=== PATIENT | male | born 1945 | race Caucasian/White ===

== ENCOUNTER 2019-09-30 12:48 | Inpatient (IN) | payer OTHER, SELFPAY ==
[2019-09-30] VITALS (11 sets, daily range): BP systolic 121–171; BP diastolic 66–92; PULSE 69–83; RESP 16–69; TEMP 36.1–36.7; O2SAT 96–99; BMI 33.4
[2019-09-30 14:52] LABS: Add Manual Diff / Slide Review NO; Basophils Absolute Auto 100 /uL (0-100); Basophils Percent Auto 1.1 % (0-2); Eosinophils Absolute Auto 100 /uL (0-450); Eosinophils Percent Auto 1.6 % (2-4); Hematocrit 35.3 % (41-53); Hemoglobin 11.9 g/dL (13.5-17.5); Lymphocytes Absolute Auto 1000 /uL (1100-4500); Lymphocytes Percent Auto 13.2 % (25-40); Mean Corpuscular HGB Conc 33.8 % (30-36); Mean Corpuscular Hemoglobin 27.7 PG (26-34); Mean Corpuscular Volume 81.7 fL (80-100); Monocytes Absolute Auto 800 /uL (0-900); Monocytes Percent Auto 10.3 % (3-14); Neutrophils Absolute Auto 5800 /uL (1500-7000); Neutrophils Percent Auto 73.8 % (50-75); Platelet Count 237 X10^3/uL (150-400); Red Blood Cell Count 4.31 X10^6/uL (4.5-5.9); Red Cell Distribution Width 14.1 % (11.6-14.8); White Blood Cell Count 7.9 X10^3/uL (4.5-11.0)
[2019-09-30 15:02] LABS: Alanine Aminotransferase 22 IU/L (<50); Albumin 4.1 g/dL (3.5-5.0); Albumin Globulin Ratio 1.2 (1.0-2.8); Alkaline Phosphatase 105 U/L (38-126); Aspartate Aminotransferase 21 IU/L (17-59); BUN Creatinine Ratio 23.8 (6-22); Bilirubin Total 0.8 mg/dL (0.2-1.3); Blood Urea Nitrogen 31 mg/dL (9-20); Calcium 9.7 mg/dL (8.4-10.2); Carbon Dioxide 24 mmol/L (22-32); Chloride 102 mmol/L (98-107); Estimated Glomerular Filt Rate 54.1 mL/min (>60); Globulin 3.5 g/dL (1.7-4.1); Glucose 302 mg/dL (80-110); HEMOLYSIS 22 (0-50); Lactate (Lactic Acid) 2.3 mmol/L (0.7-2.1); Potassium 5.3 mmol/L (3.4-5.1); Sodium 135 mmol/L (137-145); Total Protein 7.6 g/dL (6.3-8.2)
--- NOTE | 2019-09-30 15:44 | DI.CT.S_ITS ---
PROCEDURE: CT ABDOMEN PELVIS W CON INDICATIONS: LLQ pain TECHNIQUE: After the administration of intravenous contrast, 5 mm thick sections acquired from the diaphragm to the symphysis. 5 mm coronal and sagittal reformats were acquired. For radiation dose reduction, the following was used: automated exposure control, adjustment of mA and/or kV according to patient size. COMPARISON: None. FINDINGS: Image quality: Excellent. ABDOMEN: Lung bases: Lung bases are clear. Heart size is normal. Solid organs: Liver is normal in size and enhancement. Gallbladder is unremarkable. Biliary system is non dilated. Pancreas enhances normally. Spleen is normal in size and enhancement. No adrenal nodules. Kidneys demonstrate normal size and enhancement, without hydronephrosis. A subcentimeter cortical low density lesion is present within the midpole the right kidney which likely represents a renal cyst but is incompletely characterized. Peritoneum and bowel: Bowel loops demonstrate normal wall thickness and caliber. The appendix is thin walled and gas filled. There are scattered sigmoid diverticula. No evidence for diverticulitis. No free fluid or air. Nodes and vessels: No retroperitoneal or mesenteric adenopathy by size criteria. Aorta and inferior vena cava are normal in size. There are scattered atheromatous calcifications throughout the aorta and iliac arteries bilaterally. Miscellaneous: No ventral hernias. PELVIS: Genitourinary: The bladder is partially fluid-filled and a Whitney catheter is present. Focal wall thickening is present at the dome of the bladder in the region of the tip of the Whitney catheter (series 5, image 42). Non-dependent gas in the bladder is likely secondary to catheterization. There is a questionable soft tissue mass within the posterior aspect of the bladder and which measures 3.4 x 2.9 x 2.6 cm (series 6/image 6 and series 5/image 42). Streak artifact from the bilateral hip arthroplasties limits evaluation. Multiple punctate calculi or layered within the posterior bladder suggesting previously passed ureteral calculi. The prostate is enlarged measuring 8.1 cm in diameter where visualized. Miscellaneous: No inguinal hernias or adenopathy. Bones: No suspicious bony lesions. No vertebral body compression fractures. 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 IMPRESSION: 1. Normal appendix. Diverticulosis. No acute diverticulitis. 2. Focal superior bladder wall thickening in the region of the tip of the Whitney catheter. Differential considerations include inflammatory changes from the adjacent catheter, cystitis, or neoplasm. Consider repositioning of the Whitney catheter. It is unclear whether this may be the etiology of the patient's pain. 3. Questionable posterior bladder mass versus lobulated hypertrophy of the prostate. Direct visualization could be used to further characterize this finding and exclude neoplasm. 4. Punctate calculi within the bladder suggesting previously passed renal calculi. Dictated by: Christina Wilburn M.D. on 09/30/2019 at 15:32 Approved by: Christina Wilburn M.D. on 09/30/2019 at 15:43
--- NOTE | 2019-09-30 15:44 | PC.NURSE ---
pt reports, urinary retention, penile infection, here today due to left lower inguinal area pain, denies fever, temp 100.1 at home, takes tylenol denies nausea or vomiting or diarrhea. arrived with urinary jackson leg bag, drained 500 ml clear yellow urine.
--- NOTE | 2019-09-30 15:46 | ED.MALEGU ---
HPI - Male Genitourinary <SHANI Dukes-BC - Last Filed: 10/03/19 11:28> General Chief complaint: Urogenital-Male Stated complaint: Pain In Groin, Has A Cath Time Seen by Provider: 09/30/19 13:36 Source: patient Mode of arrival: Ambulatory Limitations: no limitations History of Present Illness HPI Narrative: The patient is a 74-year-old male nonsmoker with history of urinary retention enlarged prostate with indwelling Whitney who presents with a chief complaint of left groin pain radiating to his left lower back. He states he has had multiple infections since having the Whitney catheter indwelling. This started in June. He stated that he was seen at an outside facility 5 days ago for the same problem, was started on antibiotics for a ?infection. But not in the urine he was started on clindamycin. He presents because of continued left lower quadrant pain. He does have a history of diabetes. He denies any fevers nausea vomiting or diarrhea. He also has a history of hypertension, high cholesterol. He states that the pain is in his left lower quadrant. Related Data Home Medications Medication Instructions Recorded Confirmed Humalog KwikPen Insulin See Rx Instructions .ROUTE .COMPLEX 09/30/19 09/30/19 Humulin N NPH U-100 Insulin See Rx Instructions .ROUTE .COMPLEX 09/30/19 09/30/19 amlodipine 5 mg PO DAILY 09/30/19 09/30/19 atorvastatin 80 mg PO DAILY 09/30/19 09/30/19 finasteride 5 mg PO DAILY 09/30/19 09/30/19 furosemide 40 mg PO DAILY PRN 09/30/19 09/30/19 hydrocodone-acetaminophen 1 - 2 tab PO Q4H PRN 09/30/19 09/30/19 lisinopril 10 mg PO DAILY 09/30/19 09/30/19 metformin 1,000 mg PO BID 09/30/19 09/30/19 potassium chloride 10 mg PO DAILY 09/30/19 09/30/19 tamsulosin 0.4 mg PO DAILY 09/30/19 09/30/19 Previous Rx's Medication Instructions Recorded levofloxacin 500 mg PO DAILY #10 tab 10/03/19 Allergies Allergy/AdvReac Type Severity Reaction Status Date / Time latex Allergy Verified 09/30/19 13:03 Review of Systems <ALEA Dukes - Last Filed: 10/03/19 11:28> Review of Systems Narrative: GENERAL: Denies chills, fatigue, malaise, fever, sweats. HEENT: Denies sinus pain, ear pain, sore throat, difficulty swallowing, dizziness. RESPIRATORY: Denies dyspnea, cough, wheezing, hemoptysis, sputum. CARDIOVASCULAR: Denies chest pain, palpitations, orthopnea, edema, GASTROINTESTINAL: See HPI : See HPI MUSCULOSKELETAL: denies weakness, joint pain, or bony pain SKIN: Denies rash, skin lesions, or other NEUROLOGIC: Denies weakness, headache, numbness, change in speech, confusion, seizures, incoordination. PSYCHIATRIC: No concerning psychosocial issues. 12 point review of systems is negative except for those stated above Patient History <ALEA Dukes - Last Filed: 10/03/19 11:28> Medical History (Updated 10/01/19 @ 01:28 by MARCIAL Joya) Enlarged prostate (Acute) Hyperlipidemia (Acute) Hypertension (Acute) Lumbar back pain with radiculopathy affecting left lower extremity (Acute) Neuropathy involving both lower extremities (Acute) Type 2 diabetes mellitus (Acute) Urinary retention (Acute) Surgical History (Updated 10/01/19 @ 01:28 by MARCIAL Joya) History of back surgery (Acute) History of bilateral total hip arthroplasty (Acute) History of discectomy (Acute) Social History household members: spouse Smoking Status: Never smoker Smoking Status: Never smoker Substance Use Type: does not use Exam <ALEA Dukes - Last Filed: 10/03/19 11:28> Narrative Exam Narrative: GENERAL: Obese male in no acute distress HEAD: Atraumatic. Normocephalic. No temporal or scalp tenderness. EYES: Pupils equal round and reactive. Extraocular motions intact. No scleral icterus. No injection or drainage. ENT: Nose without bleeding, purulent drainage or septal hematoma. Throat without erythema, tonsillar hypertrophy or exudate. Uvula midline. Airway patent. NECK: Trachea midline. No JVD or lymphadenopathy. Supple, nontender, no meningeal signs. CARDIOVASCULAR: Regular rate and rhythm without murmurs, gallops, or rubs. RESPIRATORY: Clear to auscultation. Breath sounds equal bilaterally. No wheezes, rales, or rhonchi. No cough. No increased respiratory effort. No accessory muscle use. GASTROINTESTINAL: Abdomen soft, tenderness to left lower quadrant, nondistended. No hepato-splenomegaly, or palpable masses. Active bowel sounds all 4 quadrants EXTREMITIES: No clubbing, cyanosis, or edema. No joint tenderness, effusion, or edema noted. BACK: Nontender without deformity or crepitance. No flank tenderness. NEURO: AOx3. SKIN: see exam. Otherwise no erythema or ecchymosis noted on visible skin : with Nallely YUSUF at bedside: Whitney catheter in place, purulent drainage at urinary meatus with culture obtained. Diffuse erythema over scrotum. Pain to palpation left testicle. No evidence of wounds, skin breakdown or crepitus on scrotum. No signs of Maria E's gangrene Initial Vital Signs Initial Vital Signs: Vital Signs Temperature 98.1 F 09/30/19 12:56 Pulse Rate 82 09/30/19 12:56 Respiratory Rate 18 09/30/19 12:56 Blood Pressure 121/87 09/30/19 12:56 Pulse Oximetry 98 09/30/19 12:56 <Robinson Tejeda DO - Last Filed: 10/09/19 09:22> Initial Vital Signs Initial Vital Signs: Vital Signs Temperature 98.1 F 09/30/19 12:56 Pulse Rate 82 09/30/19 12:56 Respiratory Rate 18 09/30/19 12:56 Blood Pressure 121/87 09/30/19 12:56 Pulse Oximetry 98 09/30/19 12:56 Course <ALEA Dukes - Last Filed: 10/03/19 11:28> Orders Ordered: Discontinued Medications Acetaminophen (Tylenol) 650 mg PO Q6HR PRN PRN Reason: Fever/Mild Pain (1-3) Last Admin: 10/02/19 21:47 Dose: 650 mg Documented by: ESTIVEN Hendrickson Hydrox/Mg Hydrox/Simethicone (Maalox Plus) 30 ml PO Q6HR PRN PRN Reason: Dyspepsia Amlodipine Besylate (Norvasc) 5 mg PO DAILY JAVON Last Admin: 10/03/19 09:30 Dose: 5 mg Documented by: Admin: 10/02/19 10:23 Dose: 5 mg Documented by: Admin: 10/01/19 08:39 Dose: 5 mg Documented by: BRIDGER Atorvastatin Calcium (Lipitor) 80 mg PO BEDTIME [facility] Last Admin: 10/02/19 21:47 Dose: 80 mg Documented by: Admin: 10/01/19 21:44 Dose: 80 mg Documented by: Admin: 10/01/19 01:03 Dose: 80 mg Documented by: JOSE ARMANDO Bisacodyl (Dulcolax) 10 mg IN DAILY PRN PRN Reason: Constipation Calcium Carbonate (Tums) 1,000 mg PO Q4HR PRN PRN Reason: Dyspepsia Dextrose (D50w) 25 gm IV PRN PRN; Protocol PRN Reason: Hypoglycemia Docusate Sodium (Colace) 100 mg PO BID PRN PRN Reason: Constipation Finasteride (Proscar) 5 mg PO DAILY [facility] Last Admin: 10/03/19 09:30 Dose: 5 mg Documented by: Admin: 10/02/19 10:24 Dose: 5 mg Documented by: Admin: 10/01/19 13:08 Dose: 5 mg Documented by: Admin: 10/01/19 00:52 Dose: Not Given Documented by: JOSE ARMANDO Heparin Sodium (Porcine) (Heparin) 5,000 unit SUBCUT BID [facility] Last Admin: 10/03/19 09:33 Dose: Not Given Documented by: Admin: 10/02/19 21:47 Dose: 5,000 unit Documented by: Admin: 10/02/19 10:23 Dose: 5,000 unit Documented by: Admin: 10/01/19 21:44 Dose: 5,000 unit Documented by: Admin: 10/01/19 08:39 Dose: 5,000 unit Documented by: BRIDGER Sodium Chloride (Normal Saline 0.9%) 1,000 mls @ 1,000 mls/hr IV BOLUS ONE Stop: 09/30/19 16:08 Last Infusion: 09/30/19 19:43 Dose: 0 mls/hr Documented by: Admin: 09/30/19 17:00 Dose: 1,000 mls/hr Documented by: MEISENB Sodium Chloride (Normal Saline 0.9%) 1,000 mls @ 1,000 mls/hr IV BOLUS ONE Stop: 09/30/19 20:03 Last Infusion: 09/30/19 20:41 Dose: 0 mls/hr Documented by: Admin: 09/30/19 19:43 Dose: 1,000 mls/hr Documented by: NENA Levofloxacin (Levaquin) 750 mg in 150 mls @ 100 mls/hr IV NOW ONE Stop: 09/30/19 22:32 Last Infusion: 09/30/19 22:04 Dose: 0 mls/hr Documented by: Admin: 09/30/19 21:25 Dose: 100 mls/hr Documented by: NENA Sodium Chloride (Normal Saline 0.9%) 1,000 mls @ 100 mls/hr IV CONT JAVON Last Admin: 10/02/19 07:11 Dose: 100 mls/hr Documented by: JOSE ARMANDO Infusion: 10/02/19 05:36 Dose: 100 mls/hr Documented by: JOSE ARMANDO Admin: 10/01/19 19:36 Dose: 100 mls/hr Documented by: Infusion: 10/01/19 08:06 Dose: 100 mls/hr Documented by: Admin: 09/30/19 22:06 Dose: 100 mls/hr Documented by: AMARJIT Levofloxacin (Levaquin) 750 mg in 150 mls @ 100 mls/hr IV Q48H JAVON Levofloxacin (Levaquin) 750 mg in 150 mls @ 100 mls/hr IV 2200 JAVON Last Infusion: 10/03/19 00:00 Dose: 0 mls/hr Documented by: Admin: 10/02/19 21:48 Dose: 100 mls/hr Documented by: Infusion: 10/01/19 23:45 Dose: 100 mls/hr Documented by: JOSE ARMANDO Admin: 10/01/19 21:44 Dose: 100 mls/hr Documented by: ESTIVEN Sodium Chloride (Normal Saline 0.9%) 250 mls @ 21 mls/hr IV Q24H PRN PRN Reason: Flush Insulin Aspart (Novolog Flexpen) 0 unit SUBCUT ACHS JAVON; Protocol Last Admin: 10/03/19 09:29 Dose: Not Given Documented by: Admin: 10/02/19 21:17 Dose: Not Given Documented by: Admin: 10/02/19 17:04 Dose: Not Given Documented by: Admin: 10/02/19 11:53 Dose: Not Given Documented by: Admin: 10/02/19 08:55 Dose: Not Given Documented by: Admin: 10/01/19 21:42 Dose: Not Given Documented by: Admin: 10/01/19 17:05 Dose: 1 unit Documented by: ESTIVEN Cosigned by: AMANDA Admin: 10/01/19 13:05 Dose: Not Given Documented by: Admin: 10/01/19 08:36 Dose: Not Given Documented by: BRIDGER Insulin Aspart (Novolog Flexpen) 10 unit SUBCUT QACBREAK [facility] Last Admin: 10/02/19 08:56 Dose: Not Given Documented by: Admin: 10/01/19 08:35 Dose: Not Given Documented by: BRIDGER Insulin Aspart (Novolog Flexpen) 20 unit SUBCUT QACLUNCH [facility] Last Admin: 10/01/19 13:08 Dose: 10 unit Documented by: BRIDGER Cosigned by: YDAY Insulin Aspart (Novolog Flexpen) 25 unit SUBCUT QACDINNER [facility] Last Admin: 10/02/19 17:04 Dose: Not Given Documented by: Admin: 10/01/19 17:05 Dose: 25 unit Documented by: ESTIVEN Cosigned by: AMANDA Insulin Human NPH (Humulin N) 57 unit SUBCUT DAILY [facility] Insulin Human NPH (Humulin N) 35 unit SUBCUT BEDTIME [facility] Insulin Human NPH (Humulin N) 35 unit SUBCUT NOW ONE Stop: 10/01/19 00:44 Last Admin: 10/01/19 01:04 Dose: 35 unit Documented by: JOSE ARMANDO Cosigned by: IDALIA Insulin Human NPH (Humulin N) 35 unit SUBCUT QACDINNER [facility] Insulin Human NPH (Humulin N) 57 unit SUBCUT QACBREAK [facility] Last Admin: 10/03/19 09:29 Dose: 57 unit Documented by: BRIDGER Cosigned by: CJ Admin: 10/02/19 10:24 Dose: 57 unit Documented by: BRIDGER Cosigned by: TBLANTO Admin: 10/01/19 08:40 Dose: 57 unit Documented by: BRIDGER Cosigned by: EDER Insulin Human NPH (Humulin N) 35 unit SUBCUT [facility]100 [facility] Admin: 10/02/19 21:19 Dose: Not Given Documented by: Admin: 10/01/19 21:45 Dose: 20 unit Documented by: ESTIVEN Cosigned by: AMANDA Lisinopril (Zestril) 10 mg PO DAILY [facility] Last Admin: 10/03/19 09:30 Dose: 10 mg Documented by: Admin: 10/02/19 10:23 Dose: 10 mg Documented by: Admin: 10/01/19 08:39 Dose: 10 mg Documented by: BRIDGER Naloxone HCl (Narcan) 0.2 mg IV Q2MIN PRN PRN Reason: Opiate Reversal Nystatin (Nystop) 1 applic TOP BID [facility] Last Admin: 10/03/19 07:18 Dose: Not Given Documented by: Admin: 10/02/19 21:44 Dose: Not Given Documented by: Admin: 10/02/19 07:44 Dose: Not Given Documented by: Admin: 10/01/19 21:45 Dose: Not Given Documented by: Admin: 10/01/19 08:40 Dose: Not Given Documented by: BRIDGER Ondansetron HCl (Zofran) 4 mg IV Q8HR PRN PRN Reason: Nausea And Vomiting Sodium Chloride (Normal Saline 0.9% Flush) 10 ml IV PRN PRN PRN Reason: Flush Sodium Chloride (Normal Saline 0.9% Flush) 10 ml IV BID [facility] Last Admin: 10/03/19 09:30 Dose: 10 ml Documented by: BRIDGER Tamsulosin HCl (Flomax) 0.4 mg PO DAILY [facility] Last Admin: 10/03/19 09:30 Dose: 0.4 mg Documented by: Admin: 10/02/19 10:23 Dose: 0.4 mg Documented by: Admin: 10/01/19 08:39 Dose: 0.4 mg Documented by: Admin: 10/01/19 01:04 Dose: 0.4 mg Documented by: JOSE ARMANDO Vital Signs Vital signs: Vital Signs - 8 hr 09/30/19 15:48 09/30/19 17:30 09/30/19 17:44 Pulse Rate 75 75 69 Respiratory Rate 17 21 20 Blood Pressure [Left Arm] 171/86 H 160/77 H 149/68 H Pulse Oximetry 98 98 98 <Robinson Tejeda DO - Last Filed: 10/09/19 09:22> Orders Ordered: Discontinued Medications Acetaminophen (Tylenol) 650 mg PO Q6HR PRN PRN Reason: Fever/Mild Pain (1-3) Last Admin: 10/02/19 21:47 Dose: 650 mg Documented by: ESTIVEN Hendrickson Hydrox/Mg Hydrox/Simethicone (Maalox Plus) 30 ml PO Q6HR PRN PRN Reason: Dyspepsia Amlodipine Besylate (Norvasc) 5 mg PO DAILY [facility] Last Admin: 10/03/19 09:30 Dose: 5 mg Documented by: Admin: 10/02/19 10:23 Dose: 5 mg Documented by: Admin: 10/01/19 08:39 Dose: 5 mg Documented by: BRIDGER Atorvastatin Calcium (Lipitor) 80 mg PO BEDTIME [facility] Last Admin: 10/02/19 21:47 Dose: 80 mg Documented by: Admin: 10/01/19 21:44 Dose: 80 mg Documented by: Admin: 10/01/19 01:03 Dose: 80 mg Documented by: JOSE ARMANDO Bisacodyl (Dulcolax) 10 mg IN DAILY PRN PRN Reason: Constipation Calcium Carbonate (Tums) 1,000 mg PO Q4HR PRN PRN Reason: Dyspepsia Dextrose (D50w) 25 gm IV PRN PRN; Protocol PRN Reason: Hypoglycemia Docusate Sodium (Colace) 100 mg PO BID PRN PRN Reason: Constipation Finasteride (Proscar) 5 mg PO DAILY [facility] Last Admin: 10/03/19 09:30 Dose: 5 mg Documented by: Admin: 10/02/19 10:24 Dose: 5 mg Documented by: Admin: 10/01/19 13:08 Dose: 5 mg Documented by: Admin: 10/01/19 00:52 Dose: Not Given Documented by: JOSE ARMANDO Heparin Sodium (Porcine) (Heparin) 5,000 unit SUBCUT BID [facility] Last Admin: 10/03/19 09:33 Dose: Not Given Documented by: Admin: 10/02/19 21:47 Dose: 5,000 unit Documented by: Admin: 10/02/19 10:23 Dose: 5,000 unit Documented by: Admin: 10/01/19 21:44 Dose: 5,000 unit Documented by: Admin: 10/01/19 08:39 Dose: 5,000 unit Documented by: BRIDGER Sodium Chloride (Normal Saline 0.9%) 1,000 mls @ 1,000 mls/hr IV BOLUS ONE Stop: 09/30/19 16:08 Last Infusion: 09/30/19 19:43 Dose: 0 mls/hr Documented by: Admin: 09/30/19 17:00 Dose: 1,000 mls/hr Documented by: MERA Sodium Chloride (Normal Saline 0.9%) 1,000 mls @ 1,000 mls/hr IV BOLUS ONE Stop: 09/30/19 20:03 Last Infusion: 09/30/19 20:41 Dose: 0 mls/hr Documented by: Admin: 09/30/19 19:43 Dose: 1,000 mls/hr Documented by: NENA Levofloxacin (Levaquin) 750 mg in 150 mls @ 100 mls/hr IV NOW ONE Stop: 09/30/19 22:32 Last Infusion: 09/30/19 22:04 Dose: 0 mls/hr Documented by: Admin: 09/30/19 21:25 Dose: 100 mls/hr Documented by: NENA Sodium Chloride (Normal Saline 0.9%) 1,000 mls @ 100 mls/hr IV CONT JAVON Last Admin: 10/02/19 07:11 Dose: 100 mls/hr Documented by: JOSE ARMANDO Infusion: 10/02/19 05:36 Dose: 100 mls/hr Documented by: JOSE ARMANDO Admin: 10/01/19 19:36 Dose: 100 mls/hr Documented by: Infusion: 10/01/19 08:06 Dose: 100 mls/hr Documented by: Admin: 09/30/19 22:06 Dose: 100 mls/hr Documented by: APARKER Levofloxacin (Levaquin) 750 mg in 150 mls @ 100 mls/hr IV Q48H JAVON Levofloxacin (Levaquin) 750 mg in 150 mls @ 100 mls/hr IV 2200 JAVON Last Infusion: 10/03/19 00:00 Dose: 0 mls/hr Documented by: Admin: 10/02/19 21:48 Dose: 100 mls/hr Documented by: Infusion: 10/01/19 23:45 Dose: 100 mls/hr Documented by: JOSE ARMANDO Admin: 10/01/19 21:44 Dose: 100 mls/hr Documented by: ESTIVEN Sodium Chloride (Normal Saline 0.9%) 250 mls @ 21 mls/hr IV Q24H PRN PRN Reason: Flush Insulin Aspart (Novolog Flexpen) 0 unit SUBCUT ACHS [facility]; Protocol Last Admin: 10/03/19 09:29 Dose: Not Given Documented by: Admin: 10/02/19 21:17 Dose: Not Given Documented by: Admin: 10/02/19 17:04 Dose: Not Given Documented by: Admin: 10/02/19 11:53 Dose: Not Given Documented by: Admin: 10/02/19 08:55 Dose: Not Given Documented by: Admin: 10/01/19 21:42 Dose: Not Given Documented by: Admin: 10/01/19 17:05 Dose: 1 unit Documented by: ESTIVEN Cosigned by: AMANDA Admin: 10/01/19 13:05 Dose: Not Given Documented by: Admin: 10/01/19 08:36 Dose: Not Given Documented by: BRIDGER Insulin Aspart (Novolog Flexpen) 10 unit SUBCUT QACBREAK [facility] Last Admin: 10/02/19 08:56 Dose: Not Given Documented by: Admin: 10/01/19 08:35 Dose: Not Given Documented by: BRIDGER Insulin Aspart (Novolog Flexpen) 20 unit SUBCUT QACLUNCH [facility] Last Admin: 10/01/19 13:08 Dose: 10 unit Documented by: BRIDGER Cosigned by: YAYLIN Insulin Aspart (Novolog Flexpen) 25 unit SUBCUT QACDINNER [facility] Last Admin: 10/02/19 17:04 Dose: Not Given Documented by: Admin: 10/01/19 17:05 Dose: 25 unit Documented by: ESTIVEN Cosigned by: KDALE Insulin Human NPH (Humulin N) 57 unit SUBCUT DAILY [facility] Insulin Human NPH (Humulin N) 35 unit SUBCUT BEDTIME JAVON Insulin Human NPH (Humulin N) 35 unit SUBCUT NOW ONE Stop: 10/01/19 00:44 Last Admin: 10/01/19 01:04 Dose: 35 unit Documented by: JOSE ARMANDO Cosigned by: PHONGR Insulin Human NPH (Humulin N) 35 unit SUBCUT QACDINNER [facility] Insulin Human NPH (Humulin N) 57 unit SUBCUT QACBREAK [facility] Last Admin: 10/03/19 09:29 Dose: 57 unit Documented by: BRIDGER Cosigned by: CJ Admin: 10/02/19 10:24 Dose: 57 unit Documented by: BRIDGER Cosigned by: LEILALANDONTE Admin: 10/01/19 08:40 Dose: 57 unit Documented by: BRIDGER Cosigned by: EDER Insulin Human NPH (Humulin N) 35 unit SUBCUT 2100 [facility] Last Admin: 10/02/19 21:19 Dose: Not Given Documented by: Admin: 10/01/19 21:45 Dose: 20 unit Documented by: ESTIVEN Garzaigned by: AMANDA Lisinopril (Zestril) 10 mg PO DAILY [facility] Last Admin: 10/03/19 09:30 Dose: 10 mg Documented by: Admin: 10/02/19 10:23 Dose: 10 mg Documented by: Admin: 10/01/19 08:39 Dose: 10 mg Documented by: BRIDGER Naloxone HCl (Narcan) 0.2 mg IV Q2MIN PRN PRN Reason: Opiate Reversal Nystatin (Nystop) 1 applic TOP BID [facility] Last Admin: 10/03/19 07:18 Dose: Not Given Documented by: Admin: 10/02/19 21:44 Dose: Not Given Documented by: Admin: 10/02/19 07:44 Dose: Not Given Documented by: Admin: 10/01/19 21:45 Dose: Not Given Documented by: Admin: 10/01/19 08:40 Dose: Not Given Documented by: BRIDGER Ondansetron HCl (Zofran) 4 mg IV Q8HR PRN PRN Reason: Nausea And Vomiting Sodium Chloride (Normal Saline 0.9% Flush) 10 ml IV PRN PRN PRN Reason: Flush Sodium Chloride (Normal Saline 0.9% Flush) 10 ml IV BID [facility] Last Admin: 10/03/19 09:30 Dose: 10 ml Documented by: BRIDGER Tamsulosin HCl (Flomax) 0.4 mg PO DAILY [facility] Last Admin: 10/03/19 09:30 Dose: 0.4 mg Documented by: Admin: 10/02/19 10:23 Dose: 0.4 mg Documented by: Admin: 10/01/19 08:39 Dose: 0.4 mg Documented by: Admin: 10/01/19 01:04 Dose: 0.4 mg Documented by: JOSE ARMANDO Vital Signs Vital signs: Vital Signs - 8 hr 09/30/19 15:48 09/30/19 17:30 09/30/19 17:44 Pulse Rate 75 75 69 Respiratory Rate 17 21 20 Blood Pressure [Left Arm] 171/86 H 160/77 H 149/68 H Pulse Oximetry 98 98 98 MDM - Male Genitourinary <SHANI Dukes- - Last Filed: 10/03/19 11:28> Lab Data Result diagrams: 10/01/19 05:56 10/01/19 05:56 Labs: Lab Results 09/30/19 09/30/19 09/30/19 Range/Units 14:00 14:39 14:39 WBC 7.9 (4.5-11.0) X10^3/uL RBC 4.31 L (4.5-5.9) X10^6/uL Hgb 11.9 L (13.5-17.5) g/dL Hct 35.3 L (41-53) % MCV 81.7 (80-100) fL MCH 27.7 (26-34) PG MCHC 33.8 (30-36) % RDW 14.1 (11.6-14.8) % Plt Count 237 (150-400) X10^3/uL Neut % (Auto) 73.8 (50-75) % Lymph % (Auto) 13.2 L (25-40) % [place] % (Auto) 10.3 (3-14) % Eos % (Auto) 1.6 L (2-4) % Baso % (Auto) 1.1 (0-2) % Neut # (Auto) 5800 (6257-6542) /uL Lymph # (Auto) 1000 L (5706-3952) /uL [place] # (Auto) 800 (0-900) /uL Eos # (Auto) 100 (0-450) /uL Baso # (Auto) 100 (0-100) /uL Sodium 135 L (137-145) mmol/L Potassium 5.3 H (3.4-5.1) mmol/L Chloride 102 (98-107) mmol/L Carbon Dioxide 24 (22-32) mmol/L BUN 31 H (9-20) mg/dL Creatinine 1.30 H (0.66-1.25) mg/dL Estimated GFR 54.1 L (>60) mL/min BUN/Creatinine Ratio 23.8 H (6-22) Glucose 302 H (80-110) mg/dL Lactate (0.7-2.1) mmol/L Calcium 9.7 (8.4-10.2) mg/dL Magnesium (1.6-2.3) mg/dL Total Bilirubin 0.8 (0.2-1.3) mg/dL AST 21 (17-59) IU/L ALT 22 (<50) IU/L Alkaline Phosphatase 105 (38-126) U/L Total Protein 7.6 (6.3-8.2) g/dL Albumin 4.1 (3.5-5.0) g/dL Globulin 3.5 (1.7-4.1) g/dL Albumin/Globulin Ratio 1.2 (1.0-2.8) Procalcitonin (<0.5) ng/mL Urine Color Yellow Urine Appearance Clear Urine pH 5.5 (4.5-8.0) Ur Specific [place] <=1.005 (1.000-1.035) Urine Protein Negative (Negative) Urine Glucose (UA) 1+ H (Negative) g/dL Urine Ketones Negative (NEGATIVE) Urine Occult Blood 1+ H (Negative) Urine Nitrate Negative (Negative) Urine Bilirubin Negative (NEGATIVE) Urine Urobilinogen 0.2 (0.2) E.U./dL Ur Leukocyte Esterase Negative (NEGATIVE) Urine RBC 1-5/hpf (0-5/HPF) Urine WBC 5-10/hpf H (0-5/HPF) Ur Squamous Epith Cells 0-1 /hpf (0-5/HPF) Urine Bacteria Few (2-10) H (None) Ur Culture Indicated? Specimen cultured 09/30/19 09/30/19 09/30/19 Range/Units 14:39 14:39 14:39 WBC (4.5-11.0) X10^3/uL RBC (4.5-5.9) X10^6/uL Hgb (13.5-17.5) g/dL Hct (41-53) % MCV (80-100) fL MCH (26-34) PG MCHC (30-36) % RDW (11.6-14.8) % Plt Count (150-400) X10^3/uL Neut % (Auto) (50-75) % Lymph % (Auto) (25-40) % [place] % (Auto) (3-14) % Eos % (Auto) (2-4) % Baso % (Auto) (0-2) % Neut # (Auto) (6775-3385) /uL Lymph # (Auto) (2432-6093) /uL [place] # (Auto) (0-900) /uL Eos # (Auto) (0-450) /uL Baso # (Auto) (0-100) /uL Sodium (137-145) mmol/L Potassium (3.4-5.1) mmol/L Chloride (98-107) mmol/L Carbon Dioxide (22-32) mmol/L BUN (9-20) mg/dL Creatinine (0.66-1.25) mg/dL Estimated GFR (>60) mL/min BUN/Creatinine Ratio (6-22) Glucose (80-110) mg/dL Lactate 2.3 H (0.7-2.1) mmol/L Calcium (8.4-10.2) mg/dL Magnesium 2.3 (1.6-2.3) mg/dL Total Bilirubin (0.2-1.3) mg/dL AST (17-59) IU/L ALT (<50) IU/L Alkaline Phosphatase (38-126) U/L Total Protein (6.3-8.2) g/dL Albumin (3.5-5.0) g/dL Globulin (1.7-4.1) g/dL Albumin/Globulin Ratio (1.0-2.8) Procalcitonin 0.07 (<0.5) ng/mL Urine Color Urine Appearance Urine pH (4.5-8.0) Ur Specific [place] (1.000-1.035) Urine Protein (Negative) Urine Glucose (UA) (Negative) g/dL Urine Ketones (NEGATIVE) Urine Occult Blood (Negative) Urine Nitrate (Negative) Urine Bilirubin (NEGATIVE) Urine Urobilinogen (0.2) E.U./dL Ur Leukocyte Esterase (NEGATIVE) Urine RBC (0-5/HPF) Urine WBC (0-5/HPF) Ur Squamous Epith Cells (0-5/HPF) Urine Bacteria (None) Ur Culture Indicated? 09/30/19 09/30/19 Range/Units 17:15 20:40 WBC (4.5-11.0) X10^3/uL RBC (4.5-5.9) X10^6/uL Hgb (13.5-17.5) g/dL Hct (41-53) % MCV (80-100) fL MCH (26-34) PG MCHC (30-36) % RDW (11.6-14.8) % Plt Count (150-400) X10^3/uL Neut % (Auto) (50-75) % Lymph % (Auto) (25-40) % [place] % (Auto) (3-14) % Eos % (Auto) (2-4) % Baso % (Auto) (0-2) % Neut # (Auto) (9945-2940) /uL Lymph # (Auto) (3935-8978) /uL [place] # (Auto) (0-900) /uL Eos # (Auto) (0-450) /uL Baso # (Auto) (0-100) /uL Sodium (137-145) mmol/L Potassium (3.4-5.1) mmol/L Chloride (98-107) mmol/L Carbon Dioxide (22-32) mmol/L BUN (9-20) mg/dL Creatinine (0.66-1.25) mg/dL Estimated GFR (>60) mL/min BUN/Creatinine Ratio (6-22) Glucose (80-110) mg/dL Lactate 2.3 H 2.5 H (0.7-2.1) mmol/L Calcium (8.4-10.2) mg/dL Magnesium (1.6-2.3) mg/dL Total Bilirubin (0.2-1.3) mg/dL AST (17-59) IU/L ALT (<50) IU/L Alkaline Phosphatase (38-126) U/L Total Protein (6.3-8.2) g/dL Albumin (3.5-5.0) g/dL Globulin (1.7-4.1) g/dL Albumin/Globulin Ratio (1.0-2.8) Procalcitonin (<0.5) ng/mL Urine Color Urine Appearance Urine pH (4.5-8.0) Ur Specific [place] (1.000-1.035) Urine Protein (Negative) Urine Glucose (UA) (Negative) g/dL Urine Ketones (NEGATIVE) Urine Occult Blood (Negative) Urine Nitrate (Negative) Urine Bilirubin (NEGATIVE) Urine Urobilinogen (0.2) E.U./dL Ur Leukocyte Esterase (NEGATIVE) Urine RBC (0-5/HPF) Urine WBC (0-5/HPF) Ur Squamous Epith Cells (0-5/HPF) Urine Bacteria (None) Ur Culture Indicated? Point of Care Testing Glucose POC 299 Imaging Data scrotum us: Radiologist's Impression: [address] [place] [address] Ultrasound Report Signed Patient: Ronaldo Best KMR#: [id number] : 6Acct:[id number] Age/Sex: 74 / MDate of Service: 09/30/19 Loc: ED Accession Number: [id number] Procedure: US scrotum Ordering Provider: Aparna Adams-BC PROCEDURE: US SCROTUM INDICATIONS: TESTICLE PAIN TECHNIQUE: Real-time scanning was performed of the scrotum and testicles, with image documentation. Color and pulse Doppler interrogation was performed of both testicles. COMPARISON: None. FINDINGS: Right: Testicle is normal in size at 4.1 x 2.1 x 1.7 cm, and homogenous in echotexture. Epididymis is normal in overall size and morphology. Small hydrocele. No varicoceles. Overlying scrotal skin is normal in thickness. Left: Testicle is normal in size at 4.3 x 2.9 x 2.9 cm, and homogeneous in echotexture. Epididymis is normal in overall size and morphology. Small loculated hydrocele with internal debris. No varicoceles. Overlying scrotal skin is thickened Doppler: Color and pulse Doppler demonstrate normal and symmetric arterial flow in both testicles. There is increased vascularity involving the left epididymis. IMPRESSION: 1. Findings suggestive of left-sided epididymitis. Small loculated debris-containing left-sided hydrocele. 2. Small right hydrocele. Dictated by: Tristan Villa M.D. on 09/30/2019 at 18:46 Approved by: Tristan Villa M.D. on 09/30/2019 at 18:49 CT scan - abdomen/pelvis: Radiologist's Impression: [place] [address] CT Scan Report Signed Patient: Ronaldo Best KMR#: [id number] : 6Acct:[id number] Age/Sex: 74 / MDate of Service: 09/30/19 Loc: ED Accession Number: [id number] Procedure: CT abdomen pelvis w con Ordering Provider: Aparna Adams EMERGENCY PLANNING AND RESPONSE MANAGER- PROCEDURE: CT ABDOMEN PELVIS W CON INDICATIONS: LLQ pain TECHNIQUE: After the administration of intravenous contrast, 5 mm thick sections acquired from the diaphragm to the symphysis. 5 mm coronal and sagittal reformats were acquired. For radiation dose reduction, the following was used: automated exposure control, adjustment of mA and/or kV according to patient size. COMPARISON: None. FINDINGS: Image quality: Excellent. ABDOMEN: Lung bases: Lung bases are clear. Heart size is normal. Solid organs: Liver is normal in size and enhancement. Gallbladder is unremarkable. Biliary system is non dilated. Pancreas enhances normally. Spleen is normal in size and enhancement. No adrenal nodules. Kidneys demonstrate normal size and enhancement, without hydronephrosis. A subcentimeter cortical low density lesion is present within the midpole the right kidney which likely represents a renal cyst but is incompletely characterized. Peritoneum and bowel: Bowel loops demonstrate normal wall thickness and caliber. The appendix is thin walled and gas filled. There are scattered sigmoid diverticula. No evidence for diverticulitis. No free fluid or air. Nodes and vessels: No retroperitoneal or mesenteric adenopathy by size criteria. Aorta and inferior vena cava are normal in size. There are scattered atheromatous calcifications throughout the aorta and iliac arteries bilaterally. Miscellaneous: No ventral hernias. PELVIS: Genitourinary: The bladder is partially fluid-filled and a Whitney catheter is present. Focal wall thickening is present at the dome of the bladder in the region of the tip of the Whitney catheter (series 5, image 42). Non-dependent gas in the bladder is likely secondary to catheterization. There is a questionable soft tissue mass within the posterior aspect of the bladder and which measures 3.4 x 2.9 x 2.6 cm (series 6/image 6 and series 5/image 42). Streak artifact from the bilateral hip arthroplasties limits evaluation. Multiple punctate calculi or layered within the posterior bladder suggesting previously passed ureteral calculi. The prostate is enlarged measuring 8.1 cm in diameter where visualized. Miscellaneous: No inguinal hernias or adenopathy. Bones: No suspicious bony lesions. No vertebral body compression fractures. 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 IMPRESSION: 1. Normal appendix. Diverticulosis. No acute diverticulitis. 2. Focal superior bladder wall thickening in the region of the tip of the Whitney catheter. Differential considerations include inflammatory changes from the adjacent catheter, cystitis, or neoplasm. Consider repositioning of the Whitney catheter. It is unclear whether this may be the etiology of the patient's pain. 3. Questionable posterior bladder mass versus lobulated hypertrophy of the prostate. Direct visualization could be used to further characterize this finding and exclude neoplasm. 4. Punctate calculi within the bladder suggesting previously passed renal calculi. Dictated by: Christina Wilburn M.D. on 09/30/2019 at 15:32 Approved by: Christina Wilburn M.D. on 09/30/2019 at 15:43 ECG Data Attestation: I personally reviewed and interpreted this ECG as follows: Interpretation: Sinus rhythm with first-degree AV block. Ventricular rate 79. P.r. interval 214. QRS 141. Viewed by Dr Tawana MOISE Narrative Medical decision making narrative: The patient is a 74-year-old male with a complicated medical history presents with a chief complaint of concern for urinary tract infection. He does have a urinary tract infection according to the urinalysis, is currently on clindamycin for balanitis as prescribed by an outside facility. Note upon review of catheter care with , the is rinsing out his Whitney tube and bag with tap water and then reattaching. The patient has also rinsed out his Whitney bag tubing with alcohol at times in order to help get right of exudate and pus. Unfortunately we do not have non latex coude catheters at this facility. Given that his lactate was slightly elevated at 2.3 any abdominal pain, I did obtain a CT abdomen pelvis, which showed no acute diverticulitis appendicitis or small-bowel obstruction. There is concern for enlarged prostate, which the patient already knows about as well as urinary tract infection on his CT scan. Scrotal ultrasound was obtained due to pain to palpation of left testicle, and epididymitis is suggested by imaging. Will start levofloxacin as per up-to-date recommendations for epididymitis, for non STI suspected cases. This should also provided urinary coverage as well. However I am reticent to continue the patient on clindamycin as we start levofloxacin, so I will prescribe cephalexin for the balanitis. The patient did have a slightly elevated lactate at 2.3, and repeat was 2.3. Though chart review illustrated the patient did not receive his IV fluid prior to lactate recheck. Second L of IV fluid was completed, and lactate increased to 2.5. Given that his lactate is rising despite therapy, I am concerned about discharging him home and feel as though he needs to be admitted for IV antibiotics and further monitoring. Levaquin IV initiated. Sam CEJA was kind enough to accept the patient for observation. <Robinson Tejeda, DO - Last Filed: 10/09/19 09:22> Lab Data Labs: Lab Results 09/30/19 09/30/19 09/30/19 Range/Units 14:00 14:39 14:39 WBC 7.9 (4.5-11.0) X10^3/uL RBC 4.31 L (4.5-5.9) X10^6/uL Hgb 11.9 L (13.5-17.5) g/dL Hct 35.3 L (41-53) % MCV 81.7 (80-100) fL MCH 27.7 (26-34) PG MCHC 33.8 (30-36) % RDW 14.1 (11.6-14.8) % Plt Count 237 (150-400) X10^3/uL Neut % (Auto) 73.8 (50-75) % Lymph % (Auto) 13.2 L (25-40) % [place] % (Auto) 10.3 (3-14) % Eos % (Auto) 1.6 L (2-4) % Baso % (Auto) 1.1 (0-2) % Neut # (Auto) 5800 (2951-5321) /uL Lymph # (Auto) 1000 L (8476-4080) /uL [place] # (Auto) 800 (0-900) /uL Eos # (Auto) 100 (0-450) /uL Baso # (Auto) 100 (0-100) /uL Sodium 135 L (137-145) mmol/L Potassium 5.3 H (3.4-5.1) mmol/L Chloride 102 (98-107) mmol/L Carbon Dioxide 24 (22-32) mmol/L BUN 31 H (9-20) mg/dL Creatinine 1.30 H (0.66-1.25) mg/dL Estimated GFR 54.1 L (>60) mL/min BUN/Creatinine Ratio 23.8 H (6-22) Glucose 302 H (80-110) mg/dL Lactate (0.7-2.1) mmol/L Calcium 9.7 (8.4-10.2) mg/dL Magnesium (1.6-2.3) mg/dL Total Bilirubin 0.8 (0.2-1.3) mg/dL AST 21 (17-59) IU/L ALT 22 (<50) IU/L Alkaline Phosphatase 105 (38-126) U/L Total Protein 7.6 (6.3-8.2) g/dL Albumin 4.1 (3.5-5.0) g/dL Globulin 3.5 (1.7-4.1) g/dL Albumin/Globulin Ratio 1.2 (1.0-2.8) Procalcitonin (<0.5) ng/mL Urine Color Yellow Urine Appearance Clear Urine pH 5.5 (4.5-8.0) Ur Specific [place] <=1.005 (1.000-1.035) Urine Protein Negative (Negative) Urine Glucose (UA) 1+ H (Negative) g/dL Urine Ketones Negative (NEGATIVE) Urine Occult Blood 1+ H (Negative) Urine Nitrate Negative (Negative) Urine Bilirubin Negative (NEGATIVE) Urine Urobilinogen 0.2 (0.2) E.U./dL Ur Leukocyte Esterase Negative (NEGATIVE) Urine RBC 1-5/hpf (0-5/HPF) Urine WBC 5-10/hpf H (0-5/HPF) Ur Squamous Epith Cells 0-1 /hpf (0-5/HPF) Urine Bacteria Few (2-10) H (None) Ur Culture Indicated? Specimen cultured 09/30/19 09/30/19 09/30/19 Range/Units 14:39 14:39 14:39 WBC (4.5-11.0) X10^3/uL RBC (4.5-5.9) X10^6/uL Hgb (13.5-17.5) g/dL Hct (41-53) % MCV (80-100) fL MCH (26-34) PG MCHC (30-36) % RDW (11.6-14.8) % Plt Count (150-400) X10^3/uL Neut % (Auto) (50-75) % Lymph % (Auto) (25-40) % [place] % (Auto) (3-14) % Eos % (Auto) (2-4) % Baso % (Auto) (0-2) % Neut # (Auto) (2131-1424) /uL Lymph # (Auto) (1977-3031) /uL [place] # (Auto) (0-900) /uL Eos # (Auto) (0-450) /uL Baso # (Auto) (0-100) /uL Sodium (137-145) mmol/L Potassium (3.4-5.1) mmol/L Chloride (98-107) mmol/L Carbon Dioxide (22-32) mmol/L BUN (9-20) mg/dL Creatinine (0.66-1.25) mg/dL Estimated GFR (>60) mL/min BUN/Creatinine Ratio (6-22) Glucose (80-110) mg/dL Lactate 2.3 H (0.7-2.1) mmol/L Calcium (8.4-10.2) mg/dL Magnesium 2.3 (1.6-2.3) mg/dL Total Bilirubin (0.2-1.3) mg/dL AST (17-59) IU/L ALT (<50) IU/L Alkaline Phosphatase (38-126) U/L Total Protein (6.3-8.2) g/dL Albumin (3.5-5.0) g/dL Globulin (1.7-4.1) g/dL Albumin/Globulin Ratio (1.0-2.8) Procalcitonin 0.07 (<0.5) ng/mL Urine Color Urine Appearance Urine pH (4.5-8.0) Ur Specific [place] (1.000-1.035) Urine Protein (Negative) Urine Glucose (UA) (Negative) g/dL Urine Ketones (NEGATIVE) Urine Occult Blood (Negative) Urine Nitrate (Negative) Urine Bilirubin (NEGATIVE) Urine Urobilinogen (0.2) E.U./dL Ur Leukocyte Esterase (NEGATIVE) Urine RBC (0-5/HPF) Urine WBC (0-5/HPF) Ur Squamous Epith Cells (0-5/HPF) Urine Bacteria (None) Ur Culture Indicated? 09/30/19 09/30/19 Range/Units 17:15 20:40 WBC (4.5-11.0) X10^3/uL RBC (4.5-5.9) X10^6/uL Hgb (13.5-17.5) g/dL Hct (41-53) % MCV (80-100) fL MCH (26-34) PG MCHC (30-36) % RDW (11.6-14.8) % Plt Count (150-400) X10^3/uL Neut % (Auto) (50-75) % Lymph % (Auto) (25-40) % [place] % (Auto) (3-14) % Eos % (Auto) (2-4) % Baso % (Auto) (0-2) % Neut # (Auto) (5615-5348) /uL Lymph # (Auto) (2368-3223) /uL [place] # (Auto) (0-900) /uL Eos # (Auto) (0-450) /uL Baso # (Auto) (0-100) /uL Sodium (137-145) mmol/L Potassium (3.4-5.1) mmol/L Chloride (98-107) mmol/L Carbon Dioxide (22-32) mmol/L BUN (9-20) mg/dL Creatinine (0.66-1.25) mg/dL Estimated GFR (>60) mL/min BUN/Creatinine Ratio (6-22) Glucose (80-110) mg/dL Lactate 2.3 H 2.5 H (0.7-2.1) mmol/L Calcium (8.4-10.2) mg/dL Magnesium (1.6-2.3) mg/dL Total Bilirubin (0.2-1.3) mg/dL AST (17-59) IU/L ALT (<50) IU/L Alkaline Phosphatase (38-126) U/L Total Protein (6.3-8.2) g/dL Albumin (3.5-5.0) g/dL Globulin (1.7-4.1) g/dL Albumin/Globulin Ratio (1.0-2.8) Procalcitonin (<0.5) ng/mL Urine Color Urine Appearance Urine pH (4.5-8.0) Ur Specific [place] (1.000-1.035) Urine Protein (Negative) Urine Glucose (UA) (Negative) g/dL Urine Ketones (NEGATIVE) Urine Occult Blood (Negative) Urine Nitrate (Negative) Urine Bilirubin (NEGATIVE) Urine Urobilinogen (0.2) E.U./dL Ur Leukocyte Esterase (NEGATIVE) Urine RBC (0-5/HPF) Urine WBC (0-5/HPF) Ur Squamous Epith Cells (0-5/HPF) Urine Bacteria (None) Ur Culture Indicated? Point of Care Testing Glucose POC 299 Discharge Plan Departure Patient Disposition: Admitted as Observation Clinical Impression: Epididymitis Urinary tract infection Qualifiers: Urinary tract infection type: catheter-associated UTI Indwelling urinary catheter type: indwelling urethral catheter Encounter type: initial encounter Qualified Code(s): T83.511A - Infection and inflammatory reaction due to indwelling urethral catheter, initial encounter Discharge Date/Time: 09/30/19 22:07 Admit Date/Time: 09/30/19 21:21 Admit Provider: Joe Vargas <Robinson Tejeda DO - Last Filed: 10/09/19 09:22> Sign Out Provider Sign Out Attestation: I was immediately available in the department for consultation. This documentation has been reviewed and I agree with assessment and plan. Supervised by Robinson Tejeda DO
[2019-09-30 16:05] LABS: Appearance Urine UA CLEAR; Bilirubin Urine UA NEGATIVE (NEGATIVE); Color Urine UA YELLOW; Glucose Urine UA 1+ g/dL (Negative); Ketones Urine UA NEGATIVE (NEGATIVE); Leukocyte Esterase Urine UA NEGATIVE (NEGATIVE); Nitrite Urine UA NEGATIVE (Negative); Occult Blood Urine UA 1+ (Negative); Protein Urine UA NEGATIVE (Negative); Specific Gravity Urine UA <=1.005 (1.000-1.035); Urobilinogen Urine UA 0.2 E.U./dL (0.2); pH Urine UA 5.5 (4.5-8.0)
[2019-09-30 16:18] LABS: Bacteria Urine Few (2-10); RBC Urine 1-5/HPF (0-5/HPF); Squamous Epithelial Cell Urine 0-1 /HPF (0-5/HPF); WBC Urine 5-10/HPF (0-5/HPF)
[2019-09-30 16:19] LABS: Culture Indicated Urine Specimen Cultured
[2019-09-30 16:44] LABS: Reflexed Lactate in 2 Hours Y
[2019-09-30] MEDS: SODIUM CHLORIDE 0.9% 1,000 ML 1000 ML IV ×2 (17:00→19:43)
[2019-09-30 17:35] LABS: Lactate 2HR (Lactic Acid Rflx) 2.3 mmol/L (0.7-2.1)
--- NOTE | 2019-09-30 17:38 | DI.US.S_ITS ---
PROCEDURE: US SCROTUM INDICATIONS: TESTICLE PAIN TECHNIQUE: Real-time scanning was performed of the scrotum and testicles, with image documentation. Color and pulse Doppler interrogation was performed of both testicles. COMPARISON: None. FINDINGS: Right: Testicle is normal in size at 4.1 x 2.1 x 1.7 cm, and homogenous in echotexture. Epididymis is normal in overall size and morphology. Small hydrocele. No varicoceles. Overlying scrotal skin is normal in thickness. Left: Testicle is normal in size at 4.3 x 2.9 x 2.9 cm, and homogeneous in echotexture. Epididymis is normal in overall size and morphology. Small loculated hydrocele with internal debris. No varicoceles. Overlying scrotal skin is thickened Doppler: Color and pulse Doppler demonstrate normal and symmetric arterial flow in both testicles. There is increased vascularity involving the left epididymis. IMPRESSION: 1. Findings suggestive of left-sided epididymitis. Small loculated debris-containing left-sided hydrocele. 2. Small right hydrocele. Dictated by: Tristan Villa M.D. on 09/30/2019 at 18:46 Approved by: Tristan Villa M.D. on 09/30/2019 at 18:49
[2019-09-30 20:56] LABS: Lactate (Lactic Acid) 2.5 mmol/L (0.7-2.1)
[2019-09-30] MEDS: levoFLOXacin 750 MG/150 ML PIGGYBACK 100 MG IV (21:25)
[2019-09-30] MEDS: SODIUM CHLORIDE 0.9% 1,000 ML 100 ML IV (22:06)
[2019-09-30 22:10] LABS: Magnesium 2.3 mg/dL (1.6-2.3)
[2019-09-30 22:23] LABS: Procalcitonin 0.07 ng/mL (<0.5)
--- NOTE | 2019-09-30 22:30 | PM.HP.1 ---
History of Present Illness History of Present Illness Date Patient Seen: 09/30/19 Time Patient Seen: 22:30 Chief complaint: Pain In Groin, Has A Cath Narrative: Mr. Ronaldo Best is a 74 year-old male with a past medical history significant for diabetes type 2, hypertension, hyperlipidemia, urinary retention and enlarged prostate who presents to the ER for left lower abdomen and groin pain. The patient is a [facility] patient and presented to [facility] in June for urinary retention. In the ER he had an indwelling Whitney catheter placed and was told to follow-up with urology and 2 weeks. Patient's sevens we filled up with Dr. Hackett with the [facility] at which time the Whitney catheter was removed. Patient was able to void however experienced urinary retention once again within 12 hours necessitating reinsertion of catheter. The patient has since followed up with [facility] who had had an extensive discussion regarding treatment options including TURP and prostatectomy. The patient elected to follow conservative path and has been on finasteride and tamsulosin with no perceived improvement. The patient has had multiple urinary tract infections with a catheter with exposure to cefdinir, Cipro, doxycycline, Augmentin and fluconazole. Most recently he evaluated at [facility] on 09/26/2019 she purulent drainage from the urethra and was started on clindamycin for a diagnosis of balanitis. Over the last 2-3 days the patient has developed left scrotal pain with redness and warmth going into the groin and lower abdomen. The patient reports over the last 3 months he has had increasing debility spending most of time in recliner however he will get up and walk around his mobile home every couple hours. He has chronic back pain and is status post back surgery with diskectomy at age 16 with resultant radiculopathy left leg and neuropathy bilateral lower extremities. The patient is an insulin dependent diabetic and reports fair glycemic control with blood sugars most recently being 150 and and up to 200. He routinely sees nurse health promotion educator through [facility]. The patient denies complaints of fevers or chills, nasal congestion or sore throat. He has had progressive weakness but denies dizziness or falls. He denies complaints of chest pain or palpitations, no shortness of breath cough or wheezing. He has abdomen, groin and testicular pain as noted above. Denies complaints of heartburn, nausea or vomiting. He has had present catheter in place for 3 weeks. Patient has a latex allergy and requires silicone catheter. The patient denies changes and bowel habits. Patient has had progressive weakness in his legs reporting muscle atrophy. He has increasing difficulty getting up out of chair but once up he is able ambulate with the assistance of a cane. Upon arrival to the ER the patient is afebrile with a temperature 98.1?, heart rate of 82, blood pressure 121/78, respirations 18 saturating 98% on room air. CT of the abdomen pelvis finds the solid organs to be in unremarkable, of subcentimeter lesion in the midpole of the right kidney described as a probable crystal but unable to further describe related to artifact from bilateral hip prostheses, questionable soft tissue mass in the posterior bladder measuring 3.4 x 2.9 x 2.6 cm, prostate measures 8.1 cm. Scrotal ultrasound identifies left epididymitis with a left debris containing lobulated hydrocele, inflammation dome of bladder in the region of the tip of the catheter. On laboratory analysis the patient has white count of 7.9 with no shift, hemoglobin 11.9, hematocrit of 35.3, platelets of 237. His sodium is 135 with an elevated potassium of 5.3. He has a BUN of 31 and a creatinine of 1.3 and 18 nonfasting glucose of 302. . His EGFR is 54.1. He has a total bilirubin of 0.8, AST of 21, ALT of 22 and alkaline phosphatase of 105. His albumin is 4.1. Lactic acid on serial measurements is 2.3 and following fluid bolus increased to 2.5. Urinalysis finds 1+ glucose, 1+ blood, wbc's 5-10 and few bacteria, sample is sent for culture. Culture was obtained to the penile drainage. The patient received live locks 750 mg IV. He is admitted to the medicine service for urethritis, epididymitis and probable orchitis and hyperglycemia. Patient History Medical History (Updated 10/01/19 @ 01:28 by MARCIAL Joya) Enlarged prostate (Acute) Hyperlipidemia (Acute) Hypertension (Acute) Lumbar back pain with radiculopathy affecting left lower extremity (Acute) Neuropathy involving both lower extremities (Acute) Type 2 diabetes mellitus (Acute) Urinary retention (Acute) Surgical History (Updated 10/01/19 @ 01:28 by MARCIAL Joya) History of back surgery (Acute) History of bilateral total hip arthroplasty (Acute) History of discectomy (Acute) Family & Social History Social History: household members spouse Prior Living Arrangements House Safety & Behavioral: Feels Safe in Current Yes Environment Been Physically Hurt or No Threatened By a Person Suicidal Ideation Description None Suicide Plan Description No Plan Tobacco & Substance use: Smoking Status Never smoker alcohol intake frequency holiday/special occasion Substance Use Type does not use Comment: The patient lives in a mobile home with his to whom he has been for 51 years. Advanced directives: The patient states his desire to be FULL CODE. He designates his to be surrogate decision maker. Meds Home Medications and Allergies Home Medications Medication Instructions Recorded Confirmed Type Humalog KwikPen Insulin See Rx Instructions .ROUTE .COMPLEX 09/30/19 09/30/19 History Humulin N NPH U-100 Insulin See Rx Instructions .ROUTE .COMPLEX 09/30/19 09/30/19 History amlodipine 5 mg PO DAILY 09/30/19 09/30/19 History atorvastatin 80 mg PO DAILY 09/30/19 09/30/19 History finasteride 5 mg PO DAILY 09/30/19 09/30/19 History furosemide 40 mg PO DAILY PRN 09/30/19 09/30/19 History hydrocodone-acetaminophen 1 - 2 tab PO Q4H PRN 09/30/19 09/30/19 History lisinopril 10 mg PO DAILY 09/30/19 09/30/19 History metformin 1,000 mg PO BID 09/30/19 09/30/19 History potassium chloride 10 mg PO DAILY 09/30/19 09/30/19 History tamsulosin 0.4 mg PO DAILY 09/30/19 09/30/19 History Allergies Allergy/AdvReac Type Severity Reaction Status Date / Time latex Allergy Verified 09/30/19 13:03 Review of Systems Review of Systems ROS: Yes All systems reviewed with the patient and are negative except as otherwise documented Exam Vital Signs (past 8 hours): - 09/30/19 15:48 09/30/19 17:30 09/30/19 17:44 Temperature Pulse Rate 75 75 69 Respiratory Rate 17 69 H 20 Blood Pressure Blood Pressure [Left Arm] 171/86 H 160/77 H 149/68 H Pulse Oximetry 98 98 98 09/30/19 18:00 09/30/19 18:30 09/30/19 19:01 Temperature Pulse Rate 72 73 75 Respiratory Rate 20 Blood Pressure Blood Pressure [Left Arm] 161/75 H 160/74 H 157/71 H Pulse Oximetry 99 99 96 09/30/19 20:00 09/30/19 21:00 09/30/19 21:54 Temperature 97.8 F Pulse Rate 76 76 83 Respiratory Rate 18 18 Blood Pressure 151/71 H Blood Pressure [Left Arm] 165/79 H 152/92 H Pulse Oximetry 99 99 98 Oxygen Delivery Method Room Air Oxygen Flow Rate 0 Narrative Exam Narrative: GENERAL APPEARANCE: well developed, obese male with a BMI of 33.5, in no acute distress. HEENT: Normocephalic, wears glasses, PERRLA, conjunctiva clear, sclera anicteric, EOMs intact without nystagmus, no sinus tenderness to percussion, no rhinorrhea, mucous membranes are moist and pink without lesions or exudate. NECK/THYROID: neck supple, no JVD, no carotid bruit, no thyromegaly, trachea midline. LYMPH NODES: no cervical or supraclavicular lymphadenopathy, painful inguinal lymphadenopathy. SKIN: [place], warm and dry, no visible lesions, rashes, ulcerations or petechiae. HEART: regular rate and rhythm, S1-S2, 2/6 systolic murmur, no rubs or gallops, brisk capillary refill, trace pedal edema LUNGS: clear to auscultation bilaterally, no coarseness crackles or wheezing, no cough present CHEST: Symmetrical movement, no accessory muscle use, good tidal volume. ABDOMEN: Soft, round, tympanic to percussion, left lower quadrant abdominal tenderness, no organomegaly, no flank tenderness, no suprapubic tenderness, active bowel tones, bilateral groin pain left greater than right. : skin excoriation perineum, patient with indwelling silastic catheter, swollen left scrotum with erythema and warmth, painful to palpation, left testicle swollen and exquisitely tender to palpation. BACK: Normal curvature, nontender to palpation, no kyphosis. EXTREMITIES: moves all extremities, BLE strength is 4/5 on straight leg raise, no deformities or joint effusions. NEUROLOGIC: AAO x4, good memory and recall, cranial nerves II-XII grossly intact, neuropathy bilateral lower extremities. PSYCH: Good eye contact, linear thought process, cooperative, appropriate with stable behavior Objective Labs Result Diagrams: 09/30/19 14:39 09/30/19 14:39 Labs: Laboratory Results - last 24 hr 09/30/19 09/30/19 09/30/19 14:00 14:39 14:39 WBC 7.9 RBC 4.31 L Hgb 11.9 L Hct 35.3 L MCV 81.7 MCH 27.7 MCHC 33.8 RDW 14.1 Plt Count 237 Neut % (Auto) 73.8 Lymph % (Auto) 13.2 L [place] % (Auto) 10.3 Eos % (Auto) 1.6 L Baso % (Auto) 1.1 Neut # (Auto) 5800 Lymph # (Auto) 1000 L [place] # (Auto) 800 Eos # (Auto) 100 Baso # (Auto) 100 Sodium 135 L Potassium 5.3 H Chloride 102 Carbon Dioxide 24 BUN 31 H Creatinine 1.30 H Estimated GFR 54.1 L BUN/Creatinine Ratio 23.8 H Glucose 302 H Lactate Calcium 9.7 Magnesium Total Bilirubin 0.8 AST 21 ALT 22 Alkaline Phosphatase 105 Total Protein 7.6 Albumin 4.1 Globulin 3.5 Albumin/Globulin Ratio 1.2 Procalcitonin Urine Color Yellow Urine Appearance Clear Urine pH 5.5 Ur Specific [place] <=1.005 Urine Protein Negative Urine Glucose (UA) 1+ H Urine Ketones Negative Urine Occult Blood 1+ H Urine Nitrate Negative Urine Bilirubin Negative Urine Urobilinogen 0.2 Ur Leukocyte Esterase Negative Urine RBC 1-5/hpf Urine WBC 5-10/hpf H Ur Squamous Epith Cells 0-1 /hpf Urine Bacteria Few (2-10) H Ur Culture Indicated? Specimen cultured 09/30/19 09/30/19 09/30/19 14:39 14:39 14:39 WBC RBC Hgb Hct MCV MCH MCHC RDW Plt Count Neut % (Auto) Lymph % (Auto) [place] % (Auto) Eos % (Auto) Baso % (Auto) Neut # (Auto) Lymph # (Auto) [place] # (Auto) Eos # (Auto) Baso # (Auto) Sodium Potassium Chloride Carbon Dioxide BUN Creatinine Estimated GFR BUN/Creatinine Ratio Glucose Lactate 2.3 H Calcium Magnesium 2.3 Total Bilirubin AST ALT Alkaline Phosphatase Total Protein Albumin Globulin Albumin/Globulin Ratio Procalcitonin 0.07 Urine Color Urine Appearance Urine pH Ur Specific [place] Urine Protein Urine Glucose (UA) Urine Ketones Urine Occult Blood Urine Nitrate Urine Bilirubin Urine Urobilinogen Ur Leukocyte Esterase Urine RBC Urine WBC Ur Squamous Epith Cells Urine Bacteria Ur Culture Indicated? 09/30/19 09/30/19 17:15 20:40 WBC RBC Hgb Hct MCV MCH MCHC RDW Plt Count Neut % (Auto) Lymph % (Auto) [place] % (Auto) Eos % (Auto) Baso % (Auto) Neut # (Auto) Lymph # (Auto) [place] # (Auto) Eos # (Auto) Baso # (Auto) Sodium Potassium Chloride Carbon Dioxide BUN Creatinine Estimated GFR BUN/Creatinine Ratio Glucose Lactate 2.3 H 2.5 H Calcium Magnesium Total Bilirubin AST ALT Alkaline Phosphatase Total Protein Albumin Globulin Albumin/Globulin Ratio Procalcitonin Urine Color Urine Appearance Urine pH Ur Specific [place] Urine Protein Urine Glucose (UA) Urine Ketones Urine Occult Blood Urine Nitrate Urine Bilirubin Urine Urobilinogen Ur Leukocyte Esterase Urine RBC Urine WBC Ur Squamous Epith Cells Urine Bacteria Ur Culture Indicated? Assessment & Plan Assessment & Plan narrative: This is a 74-year-old male who provides a complex series of events stemming from enlarged prostate necessitating indwelling Whitney catheter with recurrent infections leading to his present abdominal, inguinal and scrotal pain. 1. Prostatic hypertrophy with urinary outlet obstruction and urinary retention, present on admission, active -Indwelling Whitney catheter since 07/23/2019 for urinary retention failing trial of catheter removal. Patient requires silicone catheter due to latex allergy. -Recurrent urinary tract infections that been treated with cefdinir, ciprofloxacin, doxycycline, Augmentin and fluconazole. No bladder or flank tenderness, UA with small blood, wbc's 5-10 and few bacteria, urine is sent for culture. Urine is not concerning for significant infection at this time. -Patient has purulent-appearing drainage from the meatus around the catheter, unchanged on clindamycin started 09/26/2019. Drainage is cultured. -urine leakage around urinary catheter, penile, scrotal and perineal excoriation, ordered perineal hygiene twice daily with nystatin powder. -Will continue patient's home regimen of finasteride 5 mg and tamsulosin 0.4 mg daily. -Will request Urology consult. 2. Epididymitis, probable orchitis, present on admission, active -Developed left scrotal pain 2-3 days ago, left scrotal pain redness and warmth with enlarged left testicle and development of left inguinal lymphadenopathy. -Ultrasound of the scrotum finds left epididymitis, left debris containing lobulated hydrocele. -Patient started on levofloxacin 750 mg in the emergency department, ordered levofloxacin 750 mg every 48 hours for renal dosing. 3. Elevated serum creatinine, probable chronic kidney disease stage III, present on admission, active. -Patient has elevated creatinine of 1.3 on admission labs with an EGFR of 54.1 and a calculated creatinine clearance of 37.55. There are no labs for comparison. -Patient has been on Lasix 40 mg daily with hyperglycemia leading to probable dehydration with a BUN of 31, BUN creatinine ratio of 24 and lactic acid of 2.5. -Will rehydrate with normal saline 100 cc/hour. -Will follow renal function on serial chemistries as needed. 4. Diabetes type 2, insulin dependent with hyperglycemia, present on admission, active. -Patient has an elevated glucose upon arrival at [facility]. Patient reports checking his blood sugars are routinely and reports typically between 150 and 200. -The patient follows with the diabetic nurse through [facility]. -Probable increasing glucose related to infection, no metabolic acidosis with an anion gap 9 and a CO of 24. -will hold metformin. -Fingerstick glucose checks a.c. and HS with low-dose correctional insulin. -continue parental insulin with NovoLog 10 units at breakfast, 20 units at lunch in 25 units at dinner and and pH 57 units with breakfast and 35 units with dinner. -Requested dietitian consult. 5. Chronic low back pain with left leg radiculopathy and bilateral lower extremity neuropathy, present on admission, active. -History of back surgery at age 16 with diskectomy resulting in bilateral lower extremity neuropathy and complaints of left leg radiculopathy. -Patient reports increasing debility with muscle atrophy and impaired mobility. -Physical and Occupational therapy to consult and evaluate. 6. Essential hypertension, present on admission, stable -Adequate blood pressure control on admission with a blood pressure of 121/87. -Continue home medication of amlodipine 5 mg and lisinopril 10 mg daily daily. 7. Hyperlipidemia, present on admission, stable -Continue patient's home medication of atorvastatin 80 mg daily. VTE prophylaxis: SCDs, heparin IV fluid: Normal saline 100 cc/hour Diet: Constant medium carbohydrate, heart healthy. The patient is admitted to the hospital related to severity of the patient's multiple symptoms and complex management and debilitation as well as risk of complications and adverse events. The patient is admitted as observation with expected length of stay to be less than 2 midnights. Scores GCS [place] coma scale eye opening: Spontaneous [place] coma scale verbal response: Orientated [place] coma scale motor response: Obey commands [place] coma scale total score: 15 SOFA PaO2/FIO2: >=400 mmHg Platelets: >= 150 Bilirubin: < 1.2 mg/dL Hypotension: MAP >= 70 mmHg [place] Coma Scale: 15 Renal: Creatinine 1.2-1.9 mg/dL SOFA Score: 1 Quality VTE Deep Vein Thrombosis/Pulmonary Embolism Present on Admission: No
[2019-09-30 22:41] LABS: Reflexed Lactate in 2 Hours Y
[2019-10-01] MEDS: ATORVASTATIN 20 MG TABLET 80 MG PO ×2 (01:03→21:44)
[2019-10-01] MEDS: TAMSULOSIN 0.4 MG CAPSULE PO ×2 (01:04→08:39)
[2019-10-01] MEDS: INSULIN NPH 100 UNIT/ML VIAL 35 UNIT SUBCUT ×2 (01:04→21:45)
[2019-10-01 04:33] VITALS: BP 142/70; PULSE 68; RESP 16; TEMP 36.7; O2SAT 97
[2019-10-01 06:16] LABS: Add Manual Diff / Slide Review NO; Basophils Absolute Auto 0 /uL (0-100); Basophils Percent Auto 0.6 % (0-2); Eosinophils Absolute Auto 300 /uL (0-450); Eosinophils Percent Auto 3.4 % (2-4); Hematocrit 32.8 % (41-53); Hemoglobin 11.2 g/dL (13.5-17.5); Lymphocytes Absolute Auto 1300 /uL (1100-4500); Mean Corpuscular HGB Conc 34.2 % (30-36); Mean Corpuscular Hemoglobin 27.7 PG (26-34); Mean Corpuscular Volume 80.9 fL (80-100); Monocytes Absolute Auto 900 /uL (0-900); Monocytes Percent Auto 11.3 % (3-14); Neutrophils Absolute Auto 5400 /uL (1500-7000); Neutrophils Percent Auto 68.7 % (50-75); Platelet Count 238 X10^3/uL (150-400); Red Blood Cell Count 4.05 X10^6/uL (4.5-5.9); Red Cell Distribution Width 14.1 % (11.6-14.8); White Blood Cell Count 7.8 X10^3/uL (4.5-11.0)
[2019-10-01 06:29] LABS: BUN Creatinine Ratio 20.9 (6-22); Blood Urea Nitrogen 23 mg/dL (9-20); Calcium 9.3 mg/dL (8.4-10.2); Carbon Dioxide 21 mmol/L (22-32); Chloride 108 mmol/L (98-107); Estimated Glomerular Filt Rate > 60.0 mL/min (>60); Glucose 144 mg/dL (80-110); HEMOLYSIS < 15 (0-50); Potassium 4.4 mmol/L (3.4-5.1); Sodium 138 mmol/L (137-145)
[2019-10-01 06:32] LABS: C-Reactive Protein Quant 4.4 mg/dL (<1.0)
[2019-10-01 06:35] LABS: Hemoglobin A1C% w Est Avg Glu 7.6 % (4.0-6.0)
[2019-10-01 06:41] LABS: Erythrocyte Sedimentation Rate 51 MM/HR (0-15)
--- NOTE | 2019-10-01 06:43 | PC.NURSE ---
Patient has chronic jackson that was in place on admission. Patient needs new Cude jackson placement w/ latex free catheter. Patient had crusted puss and leakage on scrotum that was cleaned at the start of shift, scott care done. Patient has no complaints of pain this shift. Scrotum is red, and edematous.
[2019-10-01 08:00] VITALS: BP 143/67; PULSE 76; RESP 16; TEMP 36.8; O2SAT 99
[2019-10-01] MEDS: lisinopriL 10 MG TABLET PO (08:39)
[2019-10-01] MEDS: HEPARIN 5,000 UNIT/ML VIAL 5000 UNIT SUBCUT ×2 (08:39→21:44)
[2019-10-01] MEDS: AMLODIPINE 5 MG TABLET PO (08:39)
[2019-10-01] MEDS: INSULIN NPH 100 UNIT/ML VIAL 57 UNIT SUBCUT (08:40)
--- NOTE | 2019-10-01 11:46 | PT.IIE ---
Surgical History (Last Updated 10/01/19 @ 01:28 by MARCIAL Joya) History of back surgery (Acute) History of bilateral total hip arthroplasty (Acute) History of discectomy (Acute) Medical History (Last Updated 10/01/19 @ 01:28 by MARCIAL Joya) Enlarged prostate (Acute) Hyperlipidemia (Acute) Hypertension (Acute) Lumbar back pain with radiculopathy affecting left lower extremity (Acute) Neuropathy involving both lower extremities (Acute) Type 2 diabetes mellitus (Acute) Urinary retention (Acute) Physical Therapy Inpatient Evaluation/Re-Eval M1 PT/OT-IP Prior Functional Status Start: 10/01/19 08:52 Freq: NEEDED Status: Active Protocol: Document 10/01/19 11:15 AW (Rec: 10/01/19 11:46 AW [id number]) Medical Review Prior Functional Status Medical History Reviewed Yes Communication WNL Mobility and Gait Since beginning of this year, pt has been using SPC 100% of the time outside of the house and occasionally inside the house. He has been able to walk ~2-3 blocks max Activities of Daily Living and IADL's Pt's helps him significantly with ADL's. She has been helping with all lower body dressing tasks including shoes, socks, briefs , pants. He also needs assist to tighten up the velcro on his diabetic shoes. Pt gets in and out of the shower with SBA. His helps him wash his back and dry his lower body. Pt has needed assist with toilet hygiene for the past few months. Prior Functional Level (Other details) Pt denies history of falls in the past few years. Social History Household Members spouse Living Arrangements House Number of Floors (Floors) One Floor Number of Stairs To Enter/Railing? level entrance Home Environment High Toilet,Tub/Shower Home Equipment Front Wheel Walker,Quad Cane, Straight Cane,Raised Toilet Seat Without Armrests,Shower Seat without Backrest,Hand Held Shower,Long Handled Sponge,Long Handled Shoe Horn, Doctor Of Naprapathy,Sock Aid,Hospital Bed, Grab Bars In Shower Employment Status Retired Additional Social History Comment Pt lives with his supportive . He sleeps either in the adjustable bed or in a recliner but complains of limited options for positioning due to catheter. M2 PT-IP Current Condition Start: 10/01/19 08:52 Freq: NEEDED Status: Active Protocol: Document 10/01/19 11:15 AW (Rec: 10/01/19 11:46 AW [id number]) Physical Therapy Current Condition Current Condition Evaluation Date 10/01/19 Treatment Diagnosis urinary retention, groin pain, impaired mobility Onset Date 09/30/19 M3 PT-IP Subjective Start: 10/01/19 08:52 Freq: NEEDED Status: Active Protocol: Document 10/01/19 11:15 AW (Rec: 10/01/19 11:46 AW [id number]) Subjective Physical Therapy Visit Type Type Initial Evaluation Visit Start Time 10:40 Visit Stop Time 11:09 Total Visit Minutes 29 Notes Pt's spouse, Savita, present throughout evaluation. Physical Therapy Visit Comments Patient Comments Pt willing to participate with PT Patient Goals Pt hopes to return home with his 's support Therapy Pain Assessment Pain When Pain Assessed At Rest Pain Present Pain Present Pain Reported Location Groin Intensity 1 Scale Used Numeric (1 - 10) M4 PT-IP Mobility and Gait Start: 10/01/19 08:52 Freq: NEEDED Status: Active Protocol: Document 10/01/19 11:15 AW (Rec: 10/01/19 11:46 AW [id number]) PT-Transfer Assessment Sit to and From Stand Sit to and from Stand Contact Guard Assistance,1 Person Assistance,Use of Upper Extremities Equipment Transfer Assistive Device Gait Belt,Straight Cane Orthotic/Prosthetic Devices or Brace: No Transfers Transfer Destination Chair,Toilet Transfer Technique pt ambulated with SPC Transfer Ability Level of Assist Contact Guard Assistance,1 Person Assistance,Use of Upper Extremities Comments Mobility Comments Pt was sittin up in the chair upon PT arrival, having just returned from the toilet. He sat with good seated balance with and without UE support and then stood using SPC CGA due to unsteadiness. After gait assessment, pt returned to the room, transferred to the chair. At that time, pt requested to use the toilet again. He transferred to the toilet SBA with use of grab bars. PT notified nursing pt was in the bathroom Gait Assessment Gait Gait Assistance Required: Standby Assistance Distance (Feet) 220 Assistive Devices Assistive Device Gait Belt,Straight Cane Orthotic/Prosthetic Devices or Brace: No Gait Deviations General Gait Pattern Decreased Stride Length, Decreased Feet Clearance, Flexed Trunk Factors Limiting Gait Function Factors Limiting Gait Function Decreased Activity Tolerance, Decreased Sensation,Decreased Strength,Pain,Poor Balance Comments Gait Comments Pt ambulated in the halls ~220 feet with SPC SBA. Gait was characterized primarily by poor foot clearance bilaterally, but pt was relatively steady with AD, requiring only SBA. No evident LOB. Stair Climbing Assessment Comments Stair Climbing Comments Not assessed. No stairs at home. PT-Balance Assessment Sitting Balance and Reactions Static Sitting Balance Ability Normal Dynamic Sitting Balance Ability Normal Standing Balance and Reactions Static Standing Balance Ability Good Dynamic Standing Balance Ability Good Device Used SPC M5 PT-IP Objective Assessments Start: 10/01/19 08:52 Freq: NEEDED Status: Active Protocol: Document 10/01/19 11:15 AW (Rec: 10/01/19 11:46 AW [id number]) Orientation Orientation/Cognition Level of Alertness Alert Orientation Name,Day of Week,Place, Situation Language Function Ability No Deficits Noted Safety Awareness Understands Safety Issues Memory Description No Deficits Noted Gross Range of Motion Upper Extremity ROM Assessment Within Functional Limits Lower Extremity ROM Assessment Bilaterally Impaired Impairments Limited dorsiflexion AROM bilaterally. Strength Upper Extremity Strength Assessment Within Functional Limits Lower Extremity Strength Assessment Bilaterally Impaired Hip L 4/5; R 4-/5 Knee B 4-/5 Ankle B 3+/5 Coordination Assessment Gross Coordination Gross Coordination WNL Sensation Assessment Sensation Gross Sensation Right LE Impaired,Left LE Impaired Light Touch Impaired Proprioception (Position) Impaired Sensation Description Numbness,Tingling Comments Sensation Comments Neuropathy affecting bilateral forefeet. Pt's assists with skin checks regularly. Muscle Tone Muscle Tone WNL Yes M6 PT-IP Treatment Start: 10/01/19 08:52 Freq: NEEDED Status: Active Protocol: Document 10/01/19 11:15 AW (Rec: 10/01/19 11:46 AW [id number]) Physical Therapy Treatment Exercises Exercises Ankle Pumps Education Education Provided Precautions,Safety Other Treatments Other Treatment Performed Provided educationon role of PT, plan of care, importance of regular foot/skin checks, and selection of appropriate assistive device. M7 PT-IP Assessment and Plan Start: 10/01/19 08:52 Freq: NEEDED Status: Active Protocol: Document 10/01/19 11:15 AW (Rec: 10/01/19 11:46 AW [id number]) PT Summary Assessment and Plan Potential Rehabilitation Potential Good Status of Condition at Evaluation Evolving Summary Impairments Pain,ROM,Strength,Balance, Sensation,Transfers,Gait, Activity Tolerance Assessment Summary Dhruv is a 74 yo man admitted with urinary retention and groin pain affecting his mobility and independence with ADL's. At recent baseline, he has been modified independent with SPC for up to 2-3 blocks max and has required significant assist from his for ADL's. On evaluation, he was weak in BLE, had impaired sensation in bilateral feet, and required CGA or SBA for all mobility. PT recommends discharge to home environment with spouse assist but would certainly benefit from home health PT to address deconditioning and strength deficits. Goals Bed Mobility Goal Independent Transfer Goal Independent,Cane Gait Goal Independent,Cane Gait Distance 500 Days to Meet Goals 5 Frequency of Treatment Frequency Of Treatment Once a Day Treatment Plan Physical Therapy Treatment Plan Bed Mobility Training,Transfer Training,Gait Training, Therapeutic Exercise,Balance Retraining,Discharge Planning, Hot or Cold Pack,Neuromuscular Re-ed Other Recommendations and Next Treatment progress gait distance, assess Focus bed mobility, initiate ther ex for BLE strengthening Recommendations To Nursing Amount of Assist Needed Standby Assistance,1 Person Assist Discharge Recommendations PT Discharge Recommendations Home with Assistance,Home Health Transportation Needs at Discharge Private Vehicle
--- NOTE | 2019-10-01 11:55 | OT.IP.EVAL ---
Past Medical History (Last Updated 10/01/19 @ 01:28 by MARCIAL Joya) Enlarged prostate (Acute) Hyperlipidemia (Acute) Hypertension (Acute) Lumbar back pain with radiculopathy affecting left lower extremity (Acute) Neuropathy involving both lower extremities (Acute) Type 2 diabetes mellitus (Acute) Urinary retention (Acute) Surgical History (Last Updated 10/01/19 @ 01:28 by MARCIAL Joya) History of back surgery (Acute) History of bilateral total hip arthroplasty (Acute) History of discectomy (Acute) Occupational Therapy Inpatient Evaluation/Re-Eval M1 PT/OT-IP Prior Functional Status Start: 10/01/19 13:13 Freq: NEEDED Status: Active Protocol: Document 10/01/19 13:14 [facility] (Rec: 10/01/19 13:37 [facility] [id number]) Medical Review Prior Functional Status Medical History Reviewed Yes Communication WNL Mobility and Gait Since beginning of this year, pt has been using SPC 100% of the time outside of the house and occasionally inside the house. He has been able to walk ~2-3 blocks max Activities of Daily Living and IADL's Pt's helps him significantly with ADL's. She has been helping with all lower body dressing tasks including shoes, socks, briefs , pants. He also needs assist to tighten up the velcro on his diabetic shoes. Pt gets in and out of the shower with SBA. His helps him wash his back and dry his lower body. Pt has needed assist with toilet hygiene for the past few months. Prior Functional Level (Other details) Pt denies history of falls in the past few years. Social History Household Members spouse Living Arrangements House Number of Floors (Floors) One Floor Number of Stairs To Enter/Railing? level entrance Home Environment High Toilet,Tub/Shower Home Equipment Front Wheel Walker,Quad Cane, Straight Cane,Raised Toilet Seat Without Armrests,Shower Seat without Backrest,Hand Held Shower,Long Handled Sponge,Long Handled Shoe Horn, Assistant Sales Director,Sock Aid,Hospital Bed, Grab Bars In Shower Employment Status Retired Additional Social History Comment Pt lives with his supportive . He sleeps either in the adjustable bed or in a recliner but complains of limited options for positioning due to catheter. M2 OT-IP Current Condition Start: 10/01/19 13:13 Freq: Status: Active Protocol: Document 10/01/19 13:14 [facility] (Rec: 10/01/19 13:37 [facility] [id number]) Occupational Therapy Current Condition Current Condition Evaluation Date 10/01/19 Treatment Diagnosis Prostatic hypertrophy, urinary retention, and decreased self care Diagnosis Onset Date 09/30/19 Weight Bearing Status Weight Bearing Status Weight Bear as Tolerated M3 OT- IP Subjective and Pain Start: 10/01/19 13:13 Freq: Status: Active Protocol: Document 10/01/19 13:14 [facility] (Rec: 10/01/19 13:37 [facility] [id number]) OT- Subjective Occupational Therapy Visit Type Type Initial Evaluation Visit Start Time 11:55 Visit Stop Time 12:32 Total Visit Minutes 37 Occupational Therapy Visit Comments Patient Comments Pt agreeable to get up for OT and pt's present in the room. Patient/Caregiver Goals Pt's wanting pt to be independent with ADL needs as he was before a few months ago . OT Pain Assessment Pain When Pain Assessed At Rest Pain Present Pain Present Pain Reported Location Groin Intensity 3 Scale Used Numeric (1 - 10) M4 OT- IP ADL's Start: 10/01/19 13:13 Freq: Status: Active Protocol: Document 10/01/19 13:14 [facility] (Rec: 10/01/19 13:37 [facility] [id number]) OT [id number] Comments OT Self-Feeding Comments Not at meal time. OT ADL-Grooming Comments OT Grooming Comments Not performed. OT ADL-Dressing General Eval Lower Body Dressing Ability Minimal Assistance Areas Needing Assistance Pants/Shorts Assistive Devices Dressing Assistive Devices Assistant Sales Director,Sock Aid Comments OT Dressing Comments Pt needing assist to help thread catheter bag into the pant leg. Pt educated to sit and use of rubber cutter to help lynne pants over his feet and also to help doff his socks. Pt states prior would stand and lean on the cabinet. OT ADL-Toileting Comments OT Toileting Comments [place] in . Pt states has a stiff back and has difficulty for wiping and that he may benefit from a toilet aid. OT ADL-Bathing Comments OT Bathing Comments Pt not wanting to shower at this time. M5 OT- IP IADL's Start: 10/01/19 13:13 Freq: Status: Active Protocol: Document 10/01/19 13:14 [facility] (Rec: 10/01/19 13:37 [facility] [id number]) OT-Instrumental Activities of Daily Living Meal Preparation Meal Preparation Caregiver Provides Assist Case Mgr Case Mgr Caregiver Provides Assist M6 OT- IP Functional Cognition Start: 10/01/19 13:13 Freq: Status: Active Protocol: Document 10/01/19 13:14 [facility] (Rec: 10/01/19 13:37 [facility] [id number]) Cognitive Factors Limiting Selfcare Function Cognitive Ability Level of Alertness Alert Patient Orientation Name,Place,Situation Attention Span Ability Capable of Focused Attention, Capable of Sustained Attention Ability to Follow Commands Able to Follow One Step Commands Safety Awareness Underestimates Need for Assistance Cognitive Comments Cognitive Assessment Comments Pt able to follow commands for Adl needs. Pt needing cues for safety awareness to sit to do LB dressing versus standing at this time. M7 OT- IP Mobility and Balance Start: 10/01/19 13:13 Freq: Status: Active Protocol: Document 10/01/19 13:14 [facility] (Rec: 10/01/19 13:37 [facility] [id number]) OT-Transfer Assessment Sit to and From Stand Sit to and from Stand Standby Assistance,1 Person Assistance OT- Balance Assessment Sitting Balance and Reactions Static Sitting Balance Ability Normal Dynamic Sitting Balance Ability Normal Standing Balance and Reactions Static Standing Balance Ability Good M8 OT- IP Objective Assessments Start: 10/01/19 13:13 Freq: Status: Active Protocol: Document 10/01/19 13:14 [facility] (Rec: 10/01/19 13:37 [facility] [id number]) OT Gross Range of Motion Upper Extremity Range of Motion Assessment Within Functional Limits OT Strength Comments Strength Comments BUE 4/5 throughout. OT-Muscle Tone Assessment Muscle Tone WNL Yes M9 OT- IP Assessment and Plan Start: 10/01/19 13:13 Freq: Status: Active Protocol: Document 10/01/19 13:14 [facility] (Rec: 10/01/19 13:37 [facility] [id number]) OT Summary Assessment and Plan Potential Rehabilitation Potential Good Analytic Complexity at Evaluation Low Summary OT Impairments Pain,Functional Cognition, Functional Mobility,Dressing, Toileting,Bathing,Toilet Transfers,Shower Transfers, Activity Tolerance Progress Towards Goals Progressing Toward Goals Assessment Summary Pt low complexity and main barrier is pain which prevent pt for being more independent with ADl's and functional mobility needs. Pt's is very supportive and will be home to assist pt for all needs. Pt will benefit from OT to work on compensatory strategies for ADl needs if in pain and ADl equipment suggestions as needed. Pt looking to go home when medically stable. Goals Grooming Goal Independent Dressing Goal Independent Toileting Goal Standby Assistance Bathing Goal Standby Assistance Toilet Transfer Goal Standby Assistance Shower Transfer Goal Standby Assistance Days to Meet Goals 5 Frequency of Treatment Frequency Of Treatment Once a Day Treatment Plan OT Treatment Plan ADL Training,Functional Cognition Training,Functional Mobility,Patient/Family Education,Discharge Planning Other Treatment Recommendations and Next Shower Treatment Focus Discharge Recommendations OT Discharge Recommendations Home with Assistance Transportation Needs at Discharge Private Vehicle
[2019-10-01 12:00] VITALS: BP 137/71; PULSE 73; RESP 16; TEMP 36.6; O2SAT 98
[2019-10-01] MEDS: INSULIN ASPART 100 UNIT/ML INSULN PEN 20 UNIT SUBCUT (13:08)
[2019-10-01] MEDS: FINASTERIDE 5 MG TABLET PO (13:08)
--- NOTE | 2019-10-01 13:52 | CM.DANOTE ---
DCP/Assessment: Reviewed chart. Patient is a 74yr old male admitted to [facility] with UTI. PCP not listed. Primary payor is 1)[facility]. Met with patient and spouse/Savita at bedside explained CM/SW role. Patient reports that he uses cane at baseline for ambulation. Patient has been having difficulty over the last few months with urinary retention causing him to have indwelling catheter placed. Since 2019 both patient and spouse report multiple infections and visits to Emergency Departments. Dr. Treadwell aware. Patient hopes to d/c home when medically stable. Patient currently inpatient status and provider anticipates he will be here a few days on IV abx. Spoke with patient and spouse about Case Management Services as outpatient to assist in navigating healthcare and specialist. Patient agreeable. Placed call to [place], spoke with Savita she will leave message for [facility] once assigned. Left [facility] line number for questions re: community case management. P: Anticipate home when medically stable. LORI Dale Discharge Planning/Care Management CM Discharge Assessment Start: 10/01/19 13:30 Freq: Status: Active Protocol: Document 10/01/19 13:30 KJS (Rec: 10/01/19 13:52 KJS [id number]) Discharge Planning Assessment Assigned Chief Radiologic Technologist LORI Dale Contact Information Savita Best (spouse) Advance Directives? No Advance Directives on File No History Provided By Patient,Family Member,Medical Record Prior Living Arrangements House Household Members spouse Type of transporation used prior to Drives own vehicle admit Willing to Return to Facility? Yes Independent with ADL's Yes Is patient alert and oriented? Yes Caregiver for Another No Comment Has cath since (2019) due to enlarged prostate causing urinary retention. DME Already Rented / Owned Cane Barriers to Discharge No Discharge Plan Home Transportation Arrangement Family to provide transport. Additional Comment Unkown at this time Whiteboard Updated in Patient Room with Yes name and ext. # of Chief Radiologic Technologist Review Status In Process Next Review Type Continued Stay Review
[2019-10-01 15:28] VITALS: BP 141/68; PULSE 73; RESP 17; TEMP 36.6; O2SAT 98
--- NOTE | 2019-10-01 16:26 | P.PN_ITS ---
Subjective Subjective Date Patient Seen: 10/01/19 Interval history: Patient reports groin pain has improved. He said that prior to admission the pain was 8/10 and now is 2/10. He continues to have a jackson in place. His insulin has been adjusted according to his usual home regimen. Exam Vital Signs (past 8 hours): - 10/01/19 12:00 Temperature 97.8 F Pulse Rate 73 Respiratory Rate 16 Blood Pressure 137/71 Pulse Oximetry 98 Oxygen Delivery Method Room Air Oxygen Flow Rate 0 Narrative Exam Narrative: Lungs: clear to auscultation CV: RRR nl SlS2 ABD: Soft/ non tender/ non distended, jackson catheter in place Ext: 1+edema Objective Labs Result Diagrams: 10/01/19 05:56 10/01/19 05:56 Labs: Laboratory Results - last 24 hr 09/30/19 09/30/19 09/30/19 14:39 14:39 17:15 WBC RBC Hgb Hct MCV MCH MCHC RDW Plt Count Neut % (Auto) Lymph % (Auto) [place] % (Auto) Eos % (Auto) Baso % (Auto) Neut # (Auto) Lymph # (Auto) [place] # (Auto) Eos # (Auto) Baso # (Auto) ESR Sodium Potassium Chloride Carbon Dioxide BUN Creatinine Estimated GFR BUN/Creatinine Ratio Glucose Hemoglobin A1c Lactate 2.3 H Calcium Magnesium 2.3 C-Reactive Protein Procalcitonin 0.07 09/30/19 10/01/19 10/01/19 20:40 05:56 05:56 WBC 7.8 RBC 4.05 L Hgb 11.2 L Hct 32.8 L MCV 80.9 MCH 27.7 MCHC 34.2 RDW 14.1 Plt Count 238 Neut % (Auto) 68.7 Lymph % (Auto) 16.0 L [place] % (Auto) 11.3 Eos % (Auto) 3.4 Baso % (Auto) 0.6 Neut # (Auto) 5400 Lymph # (Auto) 1300 [place] # (Auto) 900 Eos # (Auto) 300 Baso # (Auto) 0 ESR Sodium 138 Potassium 4.4 Chloride 108 H Carbon Dioxide 21 L BUN 23 H Creatinine 1.10 Estimated GFR > 60.0 BUN/Creatinine Ratio 20.9 Glucose 144 H D Hemoglobin A1c Lactate 2.5 H Calcium 9.3 Magnesium C-Reactive Protein Procalcitonin 10/01/19 10/01/19 10/01/19 05:56 05:56 05:56 WBC RBC Hgb Hct MCV MCH MCHC RDW Plt Count Neut % (Auto) Lymph % (Auto) [place] % (Auto) Eos % (Auto) Baso % (Auto) Neut # (Auto) Lymph # (Auto) [place] # (Auto) Eos # (Auto) Baso # (Auto) ESR 51 H Sodium Potassium Chloride Carbon Dioxide BUN Creatinine Estimated GFR BUN/Creatinine Ratio Glucose Hemoglobin A1c 7.6 H Lactate Calcium Magnesium C-Reactive Protein 4.4 H Procalcitonin Assessment & Plan Assessment & Plan narrative: This is a 74-year-old male who provides a complex series of events stemming from enlarged prostate necessitating indwelling Jackson catheter with recurrent infections leading to his present abdominal, inguinal and scrotal pain. 1. Prostatic hypertrophy with urinary outlet obstruction and urinary retention, present on admission, active -Indwelling Jackson catheter since 07/23/2019 for urinary retention failing trial of catheter removal. Patient requires silicone catheter due to latex allergy. -Recurrent urinary tract infections that been treated with cefdinir, ciprofloxacin, doxycycline, Augmentin and fluconazole. No bladder or flank tenderness, UA with small blood, wbc's 5-10 and few bacteria, urine is sent for culture. Urine is not concerning for significant infection at this time. -Patient has purulent-appearing drainage from the meatus around the catheter, unchanged on clindamycin started 09/26/2019. Drainage is cultured. -urine leakage around urinary catheter, penile, scrotal and perineal excoriation, ordered perineal hygiene twice daily with nystatin powder. -Will continue patient's home regimen of finasteride 5 mg and tamsulosin 0.4 mg daily. -Will request Urology consult. 2. Epididymitis, probable orchitis, present on admission, acute continue levofloxacin 3. Elevated serum creatinine, probable chronic kidney disease stage III, present on admission, active. --Will rehydrate with normal saline 100 cc/hour. -Will follow renal function on serial chemistries as needed. 4. Diabetes type 2, insulin dependent with hyperglycemia, present on admission, active. - continue usual home insulin 5. Chronic low back pain with left leg radiculopathy and bilateral lower extremity neuropathy, present on admission, active. -History of back surgery at age 16 with diskectomy resulting in bilateral lower extremity neuropathy and complaints of left leg radiculopathy. -Patient reports increasing debility with muscle atrophy and impaired mobility. -Physical and Occupational therapy to consult and evaluate. 6. Essential hypertension, present on admission, stable - continue current antihypertensive treatment 7. Hyperlipidemia, present on admission, stable -Continue patient's home medication of atorvastatin 80 mg daily. VTE prophylaxis: SCDs, heparin Quality VTE Deep Vein Thrombosis/Pulmonary Embolism Present on Admission: No
[2019-10-01] MEDS: INSULIN ASPART 100 UNIT/ML INSULN PEN 25 UNIT SUBCUT (17:05)
[2019-10-01] MEDS: INSULIN ASPART 100 UNIT/ML INSULN PEN SUBCUT (17:05)
[2019-10-01] MEDS: SODIUM CHLORIDE 0.9% 1,000 ML 100 ML IV (19:36)
[2019-10-01 20:00] VITALS: BP 122/57; PULSE 71; RESP 18; TEMP 36.5; O2SAT 98
[2019-10-01] MEDS: levoFLOXacin 750 MG/150 ML PIGGYBACK 100 MG IV (21:44)
[2019-10-01 23:40] VITALS: BP 142/76; PULSE 63; RESP 18; TEMP 36.4; O2SAT 100
--- NOTE | 2019-10-02 02:51 | PC.NURSE ---
Addendum entered by Darrius Bernardo R.N. 10/02/19 05:48: Fermin CEJA gave verbal order for snack at bedtime. Added under note in diet order. Addendum entered by Darrius Bernardo R.N. 10/02/19 03:49: Re-checked BS at 0330, patient BS 90. Addendum entered by Darrius Bernardo R.N. 10/02/19 02:53: Patient is asymptomatic. Original Note: Patient POC blood sugar 53 at 0240. Fermin CEJA notified of results. Patient given snack of turkey sandwich and 4 oz apple juice. Will re-check BS.
[2019-10-02 04:29] VITALS: BP 138/61; PULSE 65; RESP 16; TEMP 36.4; O2SAT 96
[2019-10-02] MEDS: SODIUM CHLORIDE 0.9% 1,000 ML 100 ML IV (07:11)
[2019-10-02 08:00] VITALS: BP 132/76; PULSE 64; RESP 18; TEMP 36.6; O2SAT 98
[2019-10-02] MEDS: HEPARIN 5,000 UNIT/ML VIAL 5000 UNIT SUBCUT ×2 (10:23→21:47)
[2019-10-02] MEDS: AMLODIPINE 5 MG TABLET PO (10:23)
[2019-10-02] MEDS: lisinopriL 10 MG TABLET PO (10:23)
[2019-10-02] MEDS: TAMSULOSIN 0.4 MG CAPSULE PO (10:23)
[2019-10-02] MEDS: FINASTERIDE 5 MG TABLET PO (10:24)
[2019-10-02] MEDS: INSULIN NPH 100 UNIT/ML VIAL 57 UNIT SUBCUT (10:24)
[2019-10-02 11:22] VITALS: BP 152/85; PULSE 117; RESP 18; TEMP 36.5; O2SAT 98
--- NOTE | 2019-10-02 11:22 | OT.IP.TRT ---
Occupational Therapy Treatment Note M2 OT-IP Current Condition Start: 10/01/19 13:13 Freq: Status: Active Protocol: Document 10/01/19 13:14 [facility] (Rec: 10/01/19 13:37 [facility] [email or web address]) Occupational Therapy Current Condition Current Condition Evaluation Date 10/01/19 Treatment Diagnosis Prostatic hypertrophy, urinary retention, and decreased self care Diagnosis Onset Date 09/30/19 Weight Bearing Status Weight Bearing Status Weight Bear as Tolerated M3 OT- IP Subjective and Pain Start: 10/01/19 13:13 Freq: Status: Active Protocol: Document 10/02/19 11:20 [facility] (Rec: 10/02/19 12:12 [facility] [email or web address]) OT- Subjective Occupational Therapy Visit Type Type Treatment Note Visit Start Time 10:41 Visit Stop Time 11:22 Total Visit Minutes 41 Occupational Therapy Visit Comments Patient Comments Pt agreeable to do OT therapy. Patient/Caregiver Goals To go home and be able to travel. OT Pain Assessment Pain When Pain Assessed At Rest Pain Present Pain Present Pain Reported Location Back Intensity 2 Scale Used Numeric (1 - 10) M4 OT- IP ADL's Start: 10/01/19 13:13 Freq: Status: Active Protocol: Document 10/02/19 11:20 [facility] (Rec: 10/02/19 12:12 [facility] [email or web address]) OT [id number] Comments OT Self-Feeding Comments Not at meal time. OT ADL-Grooming Comments OT Grooming Comments Pt not wanting to do grooming at this time. OT ADL-Toileting Comments OT Toileting Comments Pt states to order a toilet aid when able to use his computer at home. OT ADL-Bathing Comments OT Bathing Comments Pt states was able to shower yesterday with his . M5 OT- IP IADL's Start: 10/01/19 13:13 Freq: Status: Active Protocol: Document 10/01/19 13:14 [facility] (Rec: 10/01/19 13:37 [facility] [email or web address]) OT-Instrumental Activities of Daily Living Meal Preparation Meal Preparation Caregiver Provides Assist [employer] Professional Caregiver Provides Assist M6 OT- IP Functional Cognition Start: 10/01/19 13:13 Freq: Status: Active Protocol: Document 10/02/19 11:20 [facility] (Rec: 10/02/19 12:12 [facility] [email or web address]) Cognitive Factors Limiting Selfcare Function Cognitive Ability Level of Alertness Alert Patient Orientation Name,Place,Situation Attention Span Ability Capable of Focused Attention, Capable of Sustained Attention Ability to Follow Commands Able to Follow One Step Commands Safety Awareness Underestimates Need for Assistance Cognitive Comments Cognitive Assessment Comments Pt at times insistent on doing things his way. However open to suggestions for log rolling. Explained log rolling to the pt but states does it differently, however when able to show by by visual demonstration, pt states does do log rolling. M7 OT- IP Mobility and Balance Start: 10/01/19 13:13 Freq: Status: Active Protocol: Document 10/02/19 11:20 [facility] (Rec: 10/02/19 12:12 [facility] [email or web address]) OT- Bed Mobility Assessment Rolling Type of Rolling Roll to Right Supine to Sit Supine to Sit Assist Standby Assistance,Head of Bed Elevated,Bedrails OT-Transfer Assessment Sit to and From Stand Sit to and from Stand Standby Assistance,Contact Guard Assistance,1 Person Assistance Transfers Transfer Ability Standby Assistance,Contact Guard Assistance,1 Person Assistance Technique Transfer Destination Bed,Chair Transfer Technique Stand Step Pivot Devices Transfer Assistive Devices Gait Belt,Straight Cane Comments Mobility Comments Pt a little unsteady when first standing up but aware to stand for awhile before moving. Pt initially complaining of feeling dizzy and BP 152/83 and O2 on RA 98% . Pt able to walk with SPC with SBA/CGA. Pt prefers to use SPC even though would be more beneficial to use FWW. Pt states get very tense and having difficulty to relax, talked to pt about stress management. OT- Balance Assessment Sitting Balance and Reactions Static Sitting Balance Ability Normal Dynamic Sitting Balance Ability Normal Standing Balance and Reactions Static Standing Balance Ability Good Dynamic Standing Balance Ability Fair M8 OT- IP Objective Assessments Start: 10/01/19 13:13 Freq: Status: Active Protocol: Document 10/01/19 13:14 [facility] (Rec: 10/01/19 13:37 [facility] [email or web address]) OT Gross Range of Motion Upper Extremity Range of Motion Assessment Within Functional Limits OT Strength Comments Strength Comments BUE 4/5 throughout. OT-Muscle Tone Assessment Muscle Tone WNL Yes M9 OT- IP Assessment and Plan Start: 10/01/19 13:13 Freq: Status: Active Protocol: Document 10/02/19 11:20 [facility] (Rec: 10/02/19 12:12 [facility] [email or web address]) OT Summary Assessment and Plan Potential Rehabilitation Potential Good Analytic Complexity at Evaluation Low Summary OT Impairments Pain,Functional Cognition, Functional Mobility,Dressing, Toileting,Bathing,Toilet Transfers,Shower Transfers, Activity Tolerance Progress Towards Goals Progressing Toward Goals Assessment Summary Pt mainly agreeable to get up and move around in the room and also talk about stress management needs. Pt looking to go home when medically stable and to assist pt at home. Goals Grooming Goal Independent Dressing Goal Independent Toileting Goal Standby Assistance Bathing Goal Standby Assistance Toilet Transfer Goal Standby Assistance Shower Transfer Goal Standby Assistance Days to Meet Goals 3 Frequency of Treatment Frequency Of Treatment Once a Day Treatment Plan OT Treatment Plan ADL Training,Functional Cognition Training,Functional Mobility,Patient/Family Education,Discharge Planning Discharge Recommendations OT Discharge Recommendations Home with Assistance Transportation Needs at Discharge Private Vehicle
--- NOTE | 2019-10-02 14:24 | DIET.PN ---
Dietary Progress Note Assessment: 74y M admitted for UTI, has indwelling catheter, reports several infections over past few months. A1c slightly elevated (7.6), admit BG 302 but has had several evening lows (90, 53) since being started on IV abx, CRP elevated (4.4). HT: 185.9cm WT: 113.3kg BMI: 32.8 MNA: 14 normal nutrition Kam: 21 Nutrition Diagnosis: elevated nutrition related laboratory values (A1c, BG) r/t recurrent urinary related infections over past several months aeb A1c 7.6, admit BG 302, pt has urinary retention leading to indwelling catheter, multiple hospital visits to treat infections, pt BG normalizing c IV abx. Interventions: 1. Continue CCD c HS snack Diet Order: CCD EER: 2,000 kcal, 100g PRO (0.8g/kg) Monitoring/Evaluations: following bg
--- NOTE | 2019-10-02 14:41 | PT.IPTN ---
Current Diagnoses Other urethritis (09/30/19) Physical Therapy Treatment Note M2 PT-IP Current Condition Start: 10/01/19 08:52 Freq: NEEDED Status: Active Protocol: Document 10/01/19 11:15 [facility] (Rec: 10/01/19 11:46 [facility] [email or web address]) Physical Therapy Current Condition Current Condition Evaluation Date 10/01/19 Treatment Diagnosis urinary retention, groin pain, impaired mobility Onset Date 09/30/19 M3 PT-IP Subjective Start: 10/01/19 08:52 Freq: NEEDED Status: Active Protocol: Document 10/02/19 14:41 [facility] (Rec: 10/02/19 15:45 [facility] [email or web address]) Subjective Physical Therapy Visit Type Type Treatment Note Visit Start Time 14:41 Visit Stop Time 15:02 Total Visit Minutes 21 Number of GYMNASTIC TEACHER Visits 1 Physical Therapy Visit Comments Patient Comments Pt willing to participate with PT Therapy Pain Assessment Pain When Pain Assessed At Rest Pain Present Pain Present Pain Reported Location Groin Intensity 1 Scale Used Numeric (1 - 10) M4 PT-IP Mobility and Gait Start: 10/01/19 08:52 Freq: NEEDED Status: Active Protocol: Document 10/02/19 14:41 [facility] (Rec: 10/02/19 15:45 [facility] [email or web address]) PT-Transfer Assessment Sit to and From Stand Sit to and from Stand Contact Guard Assistance,1 Person Assistance,Use of Upper Extremities Equipment Transfer Assistive Device Gait Belt,Straight Cane Orthotic/Prosthetic Devices or Brace: No Transfers Transfer Destination Chair Transfer Technique pt ambulated with SPC Transfer Ability Level of Assist Contact Guard Assistance,1 Person Assistance,Use of Upper Extremities Comments Mobility Comments Pt in chair upon arrival, pt had been up ambulating with in [place] but agreed to walk again. Pt stood CGA with use of UE's. Pt ambulated in [place] around [facility] x2. Pt returned to chair for seated ther ex. Left pt with all needs within reach . Gait Assessment Gait Gait Assistance Required: Standby Assistance,Contact Guard Assist Distance (Feet) 450 Assistive Devices Assistive Device Gait Belt,Straight Cane Orthotic/Prosthetic Devices or Brace: No Gait Deviations General Gait Pattern Decreased Stride Length, Decreased Feet Clearance, Flexed Trunk Factors Limiting Gait Function Factors Limiting Gait Function Decreased Activity Tolerance, Decreased Sensation,Decreased Strength,Pain,Poor Balance Comments Gait Comments Pt ambulated with SPC while managing his catheter bag. Pt ambulate ~450ft w/o LOB. Pt continues to demonstrate decreased foot clearance. Stair Climbing Assessment Comments Stair Climbing Comments Not assessed. No stairs at home. M5 PT-IP Objective Assessments Start: 10/01/19 08:52 Freq: NEEDED Status: Active Protocol: Document 10/01/19 11:15 [facility] (Rec: 10/01/19 11:46 [facility] [id number]) Orientation Orientation/Cognition Level of Alertness Alert Orientation Name,Day of Week,Place, Situation Language Function Ability No Deficits Noted Safety Awareness Understands Safety Issues Memory Description No Deficits Noted Gross Range of Motion Upper Extremity ROM Assessment Within Functional Limits Lower Extremity ROM Assessment Bilaterally Impaired Impairments Limited dorsiflexion AROM bilaterally. Strength Upper Extremity Strength Assessment Within Functional Limits Lower Extremity Strength Assessment Bilaterally Impaired Hip L 4/5; R 4-/5 Knee B 4-/5 Ankle B 3+/5 Coordination Assessment Gross Coordination Gross Coordination WNL Sensation Assessment Sensation Gross Sensation Right LE Impaired,Left LE Impaired Light Touch Impaired Proprioception (Position) Impaired Sensation Description Numbness,Tingling Comments Sensation Comments Neuropathy affecting bilateral forefeet. Pt's assists with skin checks regularly. Muscle Tone Muscle Tone WNL Yes M6 PT-IP Treatment Start: 10/01/19 08:52 Freq: NEEDED Status: Active Protocol: Document 10/02/19 14:41 [facility] (Rec: 10/02/19 15:45 [facility] [email or web address]) Physical Therapy Treatment Exercises Exercises Ankle Pumps,Quad Sets M7 PT-IP Assessment and Plan Start: 10/01/19 08:52 Freq: NEEDED Status: Active Protocol: Document 10/02/19 14:41 [facility] (Rec: 10/02/19 15:45 [facility] [email or web address]) PT Summary Assessment and Plan Potential Rehabilitation Potential Good Status of Condition at Evaluation Evolving Summary Impairments Pain,ROM,Strength,Balance, Sensation,Transfers,Gait, Activity Tolerance Assessment Summary Pt ambulated ~450ft w/SPC/CGA- SBA. Pt has steady gait with no LOB or increase in pain with mobility. Pt will be able to return home with spouse to assist and HH when medically stable. Goals Bed Mobility Goal Independent Transfer Goal Independent,Cane Gait Goal Independent,Cane Gait Distance 500 Days to Meet Goals 5 Frequency of Treatment Frequency Of Treatment Once a Day Treatment Plan Physical Therapy Treatment Plan Bed Mobility Training,Transfer Training,Gait Training, Therapeutic Exercise,Balance Retraining,Discharge Planning, Hot or Cold Pack,Neuromuscular Re-ed Other Recommendations and Next Treatment progress gait distance, assess Focus bed mobility, ther ex for BLE strengthening Recommendations To Nursing Amount of Assist Needed Standby Assistance,1 Person Assist Discharge Recommendations PT Discharge Recommendations Home with Assistance,Home Health Transportation Needs at Discharge Private Vehicle
[2019-10-02 15:24] VITALS: BP 124/71; PULSE 67; RESP 18; TEMP 36.7; O2SAT 97
--- NOTE | 2019-10-02 17:48 | P.PN_ITS ---
Subjective Subjective Date Patient Seen: 10/02/19 Interval history: Patient is a 74-year-old male who was admitted to the hospital for urinary tract infection. The patient has known BPH with a very large prostate. Was recommended that he self catheterizes at home. Patient admits that neither he or his have been able to self-catheterize. As a consequence he has had multiple recurrent urinary tract infections. Patient is to be referred by Dr. hinojosa his current urologist to Dr. Velarde, for laser surgery on his enlarged prostate. He apparently has been awaiting a referral from [facility]. Unfortunately the referral was denied. The patient is adamant that he will not self-catheterize and will need to go home with a leg bag. Exam Vital Signs (past 8 hours): - 10/02/19 11:22 10/02/19 15:24 Temperature 97.7 F 98.0 F Pulse Rate 117 H 67 Respiratory Rate 18 18 Blood Pressure 152/85 H 124/71 Pulse Oximetry 98 97 Oxygen Delivery Method Room Air Oxygen Flow Rate 0 Narrative Exam Narrative: Pleasant male somewhat agitated and frustrated over his clinical course Lungs: Decreased breath sounds but clear to auscultation Cardiac exam: Regular rate and rhythm normal S1-S2 with a 2/6 systolic ejection murmur Abdomen: Soft and nontender without hepatosplenomegaly, Whitney catheter in place Extremities: 1+ edema Objective Labs Result Diagrams: 10/01/19 05:56 10/01/19 05:56 Assessment & Plan Assessment & Plan narrative: Prostatic hypertrophy with urinary outlet obstruction and urinary retention, present on admission, active -Indwelling Whitney catheter since 07/23/2019 for urinary retention failing trial of catheter removal. Patient requires silicone catheter due to latex allergy. -Recurrent urinary tract infections that been treated with cefdinir, ciprofloxacin, doxycycline, Augmentin and fluconazole. No bladder or flank tenderness, UA with small blood, wbc's 5-10 and few bacteria, urine is sent for culture. Urine is not concerning for significant infection at this time. -Patient has purulent-appearing drainage from the meatus around the catheter, unchanged on clindamycin started 09/26/2019. Drainage is cultured. -urine leakage around urinary catheter, penile, scrotal and perineal excoriation, ordered perineal hygiene twice daily with nystatin powder. -Will continue patient's home regimen of finasteride 5 mg and tamsulosin 0.4 mg daily. -discussed with Dr. Hackett today, he recommends transfer to a [facility] for urological consultation -Dr. Hackett also recommends continue self catheterization, and ultimately treatment for his enlarged prostate 2. Epididymitis, probable orchitis, present on admission, acute continue levofloxacin 3. Elevated serum creatinine, probable chronic kidney disease stage III, present on admission, active. --Hep-Lock IV fluid 4. Diabetes type 2, insulin dependent with hyperglycemia, present on admission, active. - continue usual home insulin 5. Chronic low back pain with left leg radiculopathy and bilateral lower extremity neuropathy, present on admission, active. -History of back surgery at age 16 with diskectomy resulting in bilateral lower extremity neuropathy and complaints of left leg radiculopathy. -Patient reports increasing debility with muscle atrophy and impaired mobility. -Physical and Occupational therapy to consult and evaluate. 6. Essential hypertension, present on admission, stable - continue current antihypertensive treatment 7. Hyperlipidemia, present on admission, stable -Continue patient's home medication of atorvastatin 80 mg daily. Quality VTE Deep Vein Thrombosis/Pulmonary Embolism Present on Admission: No
[2019-10-02 20:30] VITALS: BP 130/73; PULSE 70; RESP 18; TEMP 36.4
[2019-10-02] MEDS: ATORVASTATIN 20 MG TABLET 80 MG PO (21:47)
[2019-10-02] MEDS: ACETAMINOPHEN 325 MG TABLET 650 MG PO (21:47)
[2019-10-02] MEDS: levoFLOXacin 750 MG/150 ML PIGGYBACK 100 MG IV (21:48)
--- NOTE | 2019-10-02 23:19 | PC.NURSE ---
pt refused his insulin for dinner and HS. pt reports he talked to his diabetic nurse about it. ambulating in hallways, SBA-fww. renetta farr. urine was yellow and cloudy. scott are cleansed by CABLE TENDER. call light in reach. bed alarm active.
[2019-10-02 23:55] VITALS: BP 140/75; PULSE 67; RESP 16; TEMP 36.7; O2SAT 99
--- NOTE | 2019-10-03 01:38 | PC.NURSE ---
Patient seen and assessed at 0034. Is alert and oriented. Breath sounds CTA with RA sat of 99%. HRR with BP of 140/75. Denies nausea. BT present and is passing flatus. Indwelling catheter in place (has had since 06/2019 due to urinary retention); urine is cloudy, pale, yellow. Scrotum is reddened and swollen; tender to touch. No current drainage noted from meatus. Is able to moved self in bed. Reports he uses assistive device (either cane or walker) with 1 assist when out of bed. Wearing bilateral calf SCD's. Denies pain. Fall risk score is high and bed alarm is activated.
[2019-10-03 04:56] VITALS: BP 145/76; PULSE 69; RESP 16; TEMP 36.4; O2SAT 98
[2019-10-03 08:00] VITALS: BP 129/74; PULSE 66; RESP 18; TEMP 37.2; O2SAT 99
--- NOTE | 2019-10-03 09:10 | OT.IP.TRT ---
Current Diagnoses Other urethritis (09/30/19) Occupational Therapy Treatment Note M2 OT-IP Current Condition Start: 10/01/19 13:13 Freq: Status: Active Protocol: Document 10/01/19 13:14 [facility] (Rec: 10/01/19 13:37 [facility] [email or web address]) Occupational Therapy Current Condition Current Condition Evaluation Date 10/01/19 Treatment Diagnosis Prostatic hypertrophy, urinary retention, and decreased self care Diagnosis Onset Date 09/30/19 Weight Bearing Status Weight Bearing Status Weight Bear as Tolerated M3 OT- IP Subjective and Pain Start: 10/01/19 13:13 Freq: Status: Active Protocol: Document 10/03/19 09:10 [facility] (Rec: 10/03/19 11:08 [facility] [id number]) OT- Subjective Occupational Therapy Visit Type Type Treatment Note Visit Start Time 08:58 Visit Stop Time 09:10 Total Visit Minutes 12 Notes here for education this session. Occupational Therapy Visit Comments Patient Comments I hope I can get out of here today. Patient/Caregiver Goals to be independent with toileting needs OT Pain Assessment Pain When Pain Assessed After Treatment Pain Present Pain Present Denied Pain M4 OT- IP ADL's Start: 10/01/19 13:13 Freq: Status: Active Protocol: Document 10/03/19 09:10 [facility] (Rec: 10/03/19 11:08 [facility] [id number]) OT ADL-Toileting Devices Toileting Assistive Devices Toilet Paper Aid Comments OT Toileting Comments Pt and seen for education re: types of toilet paper aids and resources for obtaining them. Also provided information about bidets. Written resource information provided. Pt/ verbalize understanding of all education and plan to obtain toilet paper aid for home use. M9 OT- IP Assessment and Plan Start: 10/01/19 13:13 Freq: Status: Active Protocol: Document 10/03/19 09:10 [facility] (Rec: 10/03/19 11:08 [facility] [email or web address]) OT Summary Assessment and Plan Potential Rehabilitation Potential Good Summary Progress Towards Goals Goals Met Assessment Summary All OT goals achieved for this admission. Supporitve can provide assist PRN at home. No further OT services needed. Discharge Recommendations OT Discharge Recommendations Home with Assistance Home Equipment Needs toilet paper aid
[2019-10-03] MEDS: INSULIN NPH 100 UNIT/ML VIAL 57 UNIT SUBCUT (09:29)
[2019-10-03] MEDS: AMLODIPINE 5 MG TABLET PO (09:30)
[2019-10-03] MEDS: FINASTERIDE 5 MG TABLET PO (09:30)
[2019-10-03] MEDS: TAMSULOSIN 0.4 MG CAPSULE PO (09:30)
[2019-10-03] MEDS: SODIUM CHLORIDE 0.9% FLUSH 10 ML IV (09:30)
[2019-10-03] MEDS: lisinopriL 10 MG TABLET PO (09:30)
--- NOTE | 2019-10-03 10:34 | P.DS_ITS ---
History of Present Illness History of Present Illness Date Patient Seen: 10/03/19 Chief complaint: Pain In Groin, Has A Cath Narrative: Mr. Ronaldo Best is a 74 year-old male with a past medical history significant for diabetes type 2, hypertension, hyperlipidemia, urinary retention and enlarged prostate who presents to the ER for left lower abdomen and groin pain. The patient is a [facility] patient and presented to [facility] in June for urinary retention. In the ER he had an indwelling Whitney catheter placed and was told to follow-up with urology and 2 weeks. Patient's sevens we filled up with Dr. Hackett with the [facility] at which time the Whitney catheter was removed. Patient was able to void however experienced urinary retention once again within 12 hours necessitating reinsertion of catheter. The patient has since followed up with [facility] who had had an extensive discussion regarding treatment options including TURP and prostatectomy. The patient elected to follow conservative path and has been on finasteride and tamsulosin with no perceived improvement. The patient has had multiple urinary tract infections with a catheter with exposure to cefdinir, Cipro, doxycycline, Augmentin and fluconazole. Most recently he evaluated at [facility] on 09/26/2019 she purulent drainage from the urethra and was started on clindamycin for a diagnosis of balanitis. Over the last 2-3 days the patient has developed left scrotal pain with redness and warmth going into the groin and lower abdomen. The patient reports over the last 3 months he has had increasing debility spending most of time in recliner however he will get up and walk around his mobile home every couple hours. He has chronic back pain and is status post back surgery with diskectomy at age 16 with resultant radiculopathy left leg and neuropathy bilateral lower extremities. The patient is an insulin dependent diabetic and reports fair glycemic control with blood sugars most recently being 150 and and up to 200. He routinely sees nurse elementary educator through [facility]. The patient denies complaints of fevers or chills, nasal congestion or sore throat. He has had progressive weakness but denies dizziness or falls. He denies complaints of chest pain or palpitations, no shortness of breath cough or wheezing. He has abdomen, groin and testicular pain as noted above. Denies complaints of heartburn, nausea or vomiting. He has had present catheter in place for 3 weeks. Patient has a latex allergy and requires silicone catheter. The patient denies changes and bowel habits. Patient has had progressive weakness in his legs reporting muscle atrophy. He has increasing difficulty getting up out of chair but once up he is able ambulate with the assistance of a cane. Upon arrival to the ER the patient is afebrile with a temperature 98.1?, heart rate of 82, blood pressure 121/78, respirations 18 saturating 98% on room air. CT of the abdomen pelvis finds the solid organs to be in unremarkable, of subcentimeter lesion in the midpole of the right kidney described as a probable crystal but unable to further describe related to artifact from bilateral hip prostheses, questionable soft tissue mass in the posterior bladder measuring 3.4 x 2.9 x 2.6 cm, prostate measures 8.1 cm. Scrotal ultrasound identifies left epididymitis with a left debris containing lobulated hydrocele, inflammation dome of bladder in the region of the tip of the catheter. On laboratory analysis the patient has white count of 7.9 with no shift, hemoglobin 11.9, hematocrit of 35.3, platelets of 237. His sodium is 135 with an elevated potassium of 5.3. He has a BUN of 31 and a creatinine of 1.3 and 18 nonfasting glucose of 302. . His EGFR is 54.1. He has a total bilirubin of 0.8, AST of 21, ALT of 22 and alkaline phosphatase of 105. His albumin is 4.1. Lactic acid on serial measurements is 2.3 and following fluid bolus increased to 2.5. Urinalysis finds 1+ glucose, 1+ blood, wbc's 5-10 and few bacteria, sample is sent for culture. Culture was obtained to the penile drainage. The patient received live locks 750 mg IV. He is admitted to the medicine service for urethritis, epididymitis and probable orchitis and hyperglycemia. Discharge Providers Provider Date of admission: 09/30/19 21:21 Discharge Date: 10/03/19 Consults: 09/30/19 21:56 Consult to Discharge Planning Routine Comment: 10/01/19 02:31 Consult to Dietitian, Adult Routine Comment: Reason For Exam: Type 2 diabetic, hyperglycemia 10/01/19 02:32 Consult to Physical Therapy Evaluate & Treat Comment: Deconditioned, chronic LBP, left radiculopathy Physician Instructions: Evaluate and Treat 10/01/19 02:59 Consult to Occupational Therapy Evaluate & Treat Comment: Debilitated, chronic LBP, radiculopathy Physician Instructions: Evaluate and treat Discharge provider: Yue Treadwell MD Summary Hospital Course Discharge Diagnosis: 1. Urinary tract infection secondary to urinary retention due to Pseudomonas aeruginosa and Serratia marcescens 2. Benign prostatic hypertrophy 3. Indwelling Whitney catheter for urinary retention 4. Epididymitis and left hydrocele 5. Hyperlipidemia 6. Hypertension 7. Type 2 diabetes Hospital Course: Patient was admitted to the hospital for urinary retention, urinary tract infection with associated epididymitis. Patient had been attempting self catheterization at home and had been unsuccessful. His urine was positive for Pseudomonas in addition to Serratia. Both were sensitive to levofloxacin. The patient had improvement in his scrotal pain and swelling. He initially had penile discharge with which discontinued as well. The patient was afebrile. Pain had improved. And arrangements were made for him to be discharged home. The patient will go home with an indwelling Whitney catheter. He will continue on levofloxacin for total of 2 weeks. He will follow-up with his urologist Dr. Hackett for further evaluation regarding outpatient prostatect jordi. This has been communicated to the patient his who understand and agree and deemed appropriate for discharge. Status at Discharge Cognitive/behavioral status at discharge: oriented Functional status at discharge: independent ambulation Overall status at discharge: patient is back to baseline Time Spent with Patient Time spent: Less than 30 minutes Exam Vital Signs (past 8 hours): - 10/03/19 04:56 10/03/19 08:00 Temperature 97.5 F L 98.9 F Pulse Rate 69 66 Respiratory Rate 16 18 Blood Pressure 145/76 H 129/74 Pulse Oximetry 98 99 Oxygen Delivery Method Room Air Oxygen Flow Rate 0 Narrative Exam Narrative: Pleasant male in no acute distress Lungs: Clear to auscultation Cardiac exam: Regular rate and rhythm normal S1-S2 with a 2/6 systolic ejection murmur Abdomen: Soft nontender nondistended : Whitney catheter in place, scrotal sac without erythema edema or pain on palpation, no penile discharge noted Extremities: No edema Objective Labs Result Diagrams: 10/01/19 05:56 10/01/19 05:56 Discharge Plan Discharge Plan Patient Disposition: Home Discharge comment: Follow up with Dr. Hackett 1 week Discharge orders & Medications Prescriptions: New levofloxacin 500 mg tablet 500 mg PO DAILY Qty: 10 RF: 0 Continued lisinopril 10 mg PO DAILY RF: 0 metformin 500 mg Tablet Extended Release 24 Hr 1,000 mg PO BID RF: 0 potassium chloride 10 mg PO DAILY RF: 0 tamsulosin 0.4 mg PO DAILY RF: 0 amlodipine 5 mg PO DAILY RF: 0 atorvastatin 80 mg PO DAILY RF: 0 finasteride 5 mg PO DAILY RF: 0 furosemide 40 mg PO DAILY PRN (Reason: ankle edema) RF: 0 Humalog KwikPen Insulin See Rx Instructions .ROUTE .COMPLEX RF: 0 Humulin N NPH U-100 Insulin See Rx Instructions .ROUTE .COMPLEX RF: 0 hydrocodone-acetaminophen 1 - 2 tab PO Q4H PRN (Reason: Pain (Scale Score 1-3)) RF: 0 Diet/Activity/Treatments Diet: Carb-consistent/Diabetic, Low-sodium and Low-cholesterol Activity: as tolerated Catheter: 2-way Whitney Skin/Wound/Dressing Care Report to your healthcare provider any signs of infection, such as:: chills, fever Visit Report/Discharge Packet Instructions: How to Care for Your Whitney Catheter -- Male, DI for Epididymitis, DI for Urinary Tract Infection (UTI), DI for Balanitis, Catheter-Associated Urinary Tract Infection Quality VTE Deep Vein Thrombosis/Pulmonary Embolism Present on Admission: No
--- NOTE | 2019-10-03 11:06 | PT-IP ANOTE ---
Pt was in the shower when checked on. RN said pt will be d/c home soon.
--- NOTE | 2019-10-03 11:19 | CM.DPC ---
DCP continued: CM/RN spoke with patient and his and gave them the information about [place] intern product marketing manager Adrianna Ektagerardo. Contact information at [phone]. KEVLIN/RN called [facility] [phone] to get patients appointment moved up with in the next week. Nurse will contact patient later today with updated appointment time. Patients RN notified. Hayley Bailey RN
--- NOTE | 2019-10-03 12:17 | PC.NURSE ---
Discharge pt denies pain. d/c instructions provided to pt and his . Pt has apt scheduled with Dr Hackett, their office will call pt to determine if they can have a sooner apt than the end of the month. Pt aware to contact Dr Hackett with any additional questions or concerns as well. Provided pt with number to manager case through [place] provided by discharge planners in hospital. Pt left hospital with jackson in place per orders. Instructed on catheter care. Pt to get Rx filled at pharmacy. pt states he has all belongings with him. Left in w/c with ETIOLOGIST escort to car with his .
== END 2019-10-03 12:10 | disposition home or self-care (01) | DRG 728 ==
LOC: ED 13:36 → AC 21:21
PROVIDERS: Admitting Provider Nurse Practitioner Adult Health; Emergency Provider Nurse Practitioner Family; Visit Provider Nurse Practitioner Adult Health
DX: N45.3 Epididymo-orchitis (principal); N39.0 Urinary tract infection, site not specified; E11.65 Type 2 diabetes mellitus with hyperglycemia; N40.1 Benign prostatic hyperplasia with lower urinary tract symptoms; R33.8 Other retention of urine; B96.89 Other specified bacterial agents as the cause of diseases classified elsewhere; B96.5 Pseudomonas (aeruginosa) (mallei) (pseudomallei) as the cause of diseases classified elsewhere; I10 Essential (primary) hypertension; M54.5 Low back pain; N13.9 Obstructive and reflux uropathy, unspecified; E78.5 Hyperlipidemia, unspecified; Z79.4 Long term (current) use of insulin
CPT/HCPCS: 36415; 74177; 76870; 80048; 80053; 81001; 82962; 83036; 83605; 83735; 84145; 85025; 85651; 86140; 87070; 87075; 87077; 87086; 87186; 87205; 93005; 93010; 96361; 96365; 97116; 97162; 97165; 97530; 97535; 99284; J1644; J1956